=== PATIENT | male | born 1955 | race Hispanic/Latino ===

== ENCOUNTER 2018-03-20 22:29 | Inpatient (IN) | payer OTHER ==
[2018-03-20] MEDS ORDERED: fentaNYL Citrate/PF 2,000 MCG in Sodium Chloride 0.9% 60 ML IV SCH (22:37)
[2018-03-20 22:48] LABS: #Basophils 0.1 thou/uL (0.0-0.2); #Eosinphils 0.1 thou/uL (0.0-0.7); #Lymphocytes 2.5 thou/uL (1.20-3.40); #Monocytes 0.4 thou/uL (0.11-0.59); #Neutrophils 8.3 thou/uL (1.40-6.50); %Basophils 0.5 % (0.0-1.0); %Eosinophils 0.9 % (0.0-10.0); %Lymphocytes 21.8 % (21.0-51.0); %Monocytes 3.7 % (0.0-10.0); %Neutrophils 73.1 % (42.0-75.0); Hemoglobin 14.2 g/dL (14.0-18.0); Mean Corpuscular HGB CONC 31.5 g/dL (32.0-36.0); Mean Corpuscular Hemoglobin 31.4 pg (27.0-31.0); Mean Corpuscular Volume 99.7 fL (78.0-98.0); Mean Platelet Volume 9.3 fL (7.4-10.4); Platelet Count 143 thou/uL (130-400); RBC Distribution Width 12.1 % (11.5-14.5); Red Blood Cell (RBC) Count 4.53 mill/uL (4.70-6.10); White Blood Cell (WBC) Count 11.3 thou/uL (4.8-10.8)
[2018-03-20 22:51] LABS: Bilirubin Negative (Negative); Blood, Urine Moderate (Negative); Clarity CLEAR (Clear); Glucose, Urine (Dipstick) 250 mg/dL (Negative); Leukocyte Negative (Negative); Nitrite Negative (Negative); Protein, Urine (Dipstick) 100 mg/dL (Neg-Trace); Specific Gravity, Urine 1.005 (1.002-1.036); Urobilinogen 0.2 mg/dL (0.2-1.0)
[2018-03-20] MEDS ORDERED: Labetalol HCl 100 MG/20 ML VIAL ONE (22:51)
[2018-03-20 22:54] LABS: Bacteria/HPF None Seen HPF (None Seen); Hyaline Casts/LPF 0-3 HYALINE CAST LPF (0-3 Hyaline); Pathc Cast-AUWi Flag 0.29 (0-2.49); RBC/HPF 0-3 HPF (0-3); Squamous Epithelial 0-3 HPF (0-3)
[2018-03-20 22:55] LABS: INR-International Normal Ratio 1.1; PTT 34.1 SEC (22.9-36.1)
[2018-03-20 23:01] LABS: ALT (SGPT) 84 U/L (8-55); AST (SGOT) 228 U/L (5-34); Albumin 3.6 g/dL (3.4-4.8); Alkaline Phosphatase 116 U/L (40-150); Anion Gap 17 mmol/L (10-20); BUN (Urea Nitrogen) 11 mg/dL (8.4-25.7); Bilirubin, Total 0.6 mg/dL (0.2-1.2); Calc. Creatinine Clearance 0 mL/min (70-130); Calcium 8.1 mg/dL (7.8-10.44); Carbon Dioxide 17 mmol/L (23-31); Chloride 103 mmol/L (98-107); Estimated GFR-MDRD Greater than 90; Globulin 2.9 g/dL (2.4-3.5); Glucose 149 mg/dL (80-115); Lipase 34 U/L (8-78); Protein, Total 6.5 g/dL (5.8-8.1); Sodium 134 mmol/L (136-145)
[2018-03-20 23:05] LABS: Troponin I 0.057 ng/mL (< 0.028)
[2018-03-20 23:07] LABS: Bicarbonate (HCO3v) 23.6 mmol/L (1.0-85.0); CO2 Tension (PvCO2) 55.9 mmHg (41.0-51.0); Calcium, Ionized 1.08 mmol/L (1.12-1.32); Hemoglobin - Calc 17.3 g/dL (12.0-18.0); Lactate 4.89 mmol/L (0.50-2.20); O2 Tension (PvO2) 75.3 mmHg (35.0-45.0); Potassium 2.7 mmol/L (3.4-4.7); T. Carbon Dioxide 25.3 mmol/L (1.0-85.0); pH (Venous) 7.234 (7.35-7.45); vO2 Saturation-calc 91.7 % (94-98)
[2018-03-20 23:07] LABS: Actual Bicarbonate (HCO3a) 19.6 mEq/L (22-28); Analyzer IN Cardio ER; Base Excess (BEa) -7.9 mEq/L (-2.0 to +3.0); CO2 Tension 46.9 mmHg (35.0-45.0); Calcium, Ionized 1.11 mmol/L (1.12-1.30); Carboxyhemoglobin (COHb) 0.8 gm% (0.0-3.0); Hemoglobin (Hb) 16.3 g/dL (14.0-18.0); O2 Tension (PaO2) 130.8 mmHg (> 70.0); Potassium - ABG Lab 3.03 mmol/L (3.70-5.30)
[2018-03-20 23:08] LABS: CKMB 10.4 ng/mL (0-6.6)
[2018-03-20 23:10] LABS: pH, Arterial 7.24 (7.35-7.45)
[2018-03-20 23:11] LABS: ALV-art Gradient 523.575 (0-20); Puncture Site RRA
--- NOTE | 2018-03-20 23:16 | RAD ---
AP VIEW CHEST: 03/20/18 HISTORY: Cardiac arrest. AP view chest is obtained on 03/20/18. The patient has been intubated. Cardiomegaly is seen. There has been placement of a left subclavian c entral line. The distal tip appears to be kinked in the junction of the SVC and left brachiocephalic vein. Some pulmonary vascular congestion is seen. No evidence of effusion seen. There appears to be some diffuse air space opacities in both upper lobes. This may represent upper lo be edema including possible pneumonia. IMPRESSION: 1. The distal tip of the left subclavian central line is slightly kinked in the distal aspect. 2. Endotracheal tube in good position. 3. Areas of air space opacity seen in upper lobes. Pneumonia cannot be excluded. POS: [facility]
--- NOTE | 2018-03-20 23:35 | CT ---
CT BRAIN 03/20/18 HISTORY: Witnessed fall. Patient passed out. Unknown if there was head trauma. Noncontrast enhanced CT images of the brain obtained. The brain is unremarkable. No evidence of intracranial masses, hemorrhages, strokes or contusions see n. Ventricles are of normal size. IMPRESSION: Unremarkable CT brain. POS: [facility]
--- NOTE | 2018-03-20 23:44 | CT ---
CT CERVICAL SPINE 03/20/18 HISTORY: Cardiac arrest. Axial images are obtained with coronal and sagittal reconstructed images of the cervical spine. Cervical spine alignment is within normal limits. No evidence of acute cervical spine fractures seen. Nasogastric and endotracheal tube are in place. Prominent interstitial markings seen in the lungs compatible with interstitial fibrotic changes. IMPRESSION: No evidence of acute cervical spine fractures or bony lesions. POS: [facility]
[2018-03-20] MEDS ORDERED: Potassium Chloride 40 MEQ in Premix Bag 1 BAG IVPB SCH (23:45)
[2018-03-20] MEDS ORDERED: niCARdipine 20MG In NaCl 20 MG/200 ML BAG ONE (23:47)
[2018-03-20] MEDS ORDERED: Vecuronium 10 MG VIAL ONE (23:54)
--- NOTE | 2018-03-21 00:59 | PDOC.FPRHP ---
- History of Present Illness Chief Complaint: LOC, vfib with ROSC History of Present Illness: This is a 63 yo male otherwise healthy who presents to the ED following a loss of pulse, CPR, and ROSC. - Allergies/Adverse Reactions Allergies Allergy/AdvReac Type Severity Reaction Status Date / Time No Allergy Information Allergy Unverified 03/20/18 22:37 Available - History PMHx: PSHx: FHx: Social: - Vital signs BP: [] HR: [] RR: [] Tmax: [] Pox: []% on [] Wt: [] FMR H&P: Results - Labs Result Diagrams: 03/20/18 22:34 03/20/18 22:34 Lab results: WBC 11.3 thou/uL (4.8-10.8) H 03/20/18 22:34 Hgb 14.2 g/dL (14.0-18.0) 03/20/18 22:34 Hct 45.1 % (42.0-52.0) 03/20/18 22:34 MCV 99.7 fL (78.0-98.0) H 03/20/18 22:34 Plt Count 143 thou/uL (130-400) 03/20/18 22:34 Neutrophils % 73.1 % (42.0-75.0) 03/20/18 22:34 ABG pH 7.24 (7.35-7.45) L* 03/20/18 23:01 ABG pCO2 46.9 mmHg (35.0-45.0) H 03/20/18 23:01 ABG pO2 130.8 mmHg (> 70.0) H 03/20/18 23:01 VBG pCO2 55.9 mmHg (41.0-51.0) H 03/20/18 23:02 VBG pO2 75.3 mmHg (35.0-45.0) H 03/20/18 23:02 Sodium 134 mmol/L (136-145) L 03/20/18 22:34 Potassium 3.0 mmol/L (3.5-5.1) L 03/20/18 22:34 Chloride 103 mmol/L (98-107) 03/20/18 22:34 Carbon Dioxide 17 mmol/L (23-31) L 03/20/18 22:34 BUN 11 mg/dL (8.4-25.7) 03/20/18 22:34 Creatinine 0.83 mg/dL (0.6-1.3) 03/20/18 22:34 Glucose 149 mg/dL (80-115) H 03/20/18 22:34 Lactic Acid 5.7 mmol/L (0.5-2.2) H* 03/20/18 22:34 Calcium 8.1 mg/dL (7.8-10.44) 03/20/18 22:34 Total Bilirubin 0.6 mg/dL (0.2-1.2) 03/20/18 22:34 AST 228 U/L (5-34) H 03/20/18 22:34 ALT 84 U/L (8-55) H 03/20/18 22:34 Alkaline Phosphatase 116 U/L (40-150) 03/20/18 22:34 CK-MB (CK-2) 10.4 ng/mL (0-6.6) H* 03/20/18 22:34 C-Reactive Protein Less than 0.50 mg/dL (= or < 0.5) 03/20/18 22:34 Serum Total Protein 6.5 g/dL (5.8-8.1) 03/20/18 22:34 Albumin 3.6 g/dL (3.4-4.8) 03/20/18 22:34 Lipase 34 U/L (8-78) 03/20/18 22:34 Urine Ketones Negative mg/dL (Negative) 03/20/18 22:41 Urine Blood Moderate (Negative) H 03/20/18 22:41 Urine Nitrite Negative (Negative) 03/20/18 22:41 Ur Leukocyte Esterase Negative (Negative) 03/20/18 22:41 Urine RBC 0-3 HPF (0-3) 03/20/18 22:41 Urine WBC 4-6 HPF (0-3) H 03/20/18 22:41 Ur Squamous Epith Cells 0-3 HPF (0-3) 03/20/18 22:41 Urine Bacteria None Seen HPF (None Seen) 03/20/18 22:41 FMR H&P: Upper Level - Plan Date/Time: 03/21/18 0057 I, [], have evaluated this patient and agree with findings/plan as outlined by management internship resident. Pertinent changes/additions are listed here. Attending Addendum - Attending Addendum Date/Time: 03/21/18 0102 I personally evaluated the patient and discussed the management with Dr. Carter and Jana I agree with the History, Examination, Assessment and Plan documented above with any addition or exceptions noted below- 63 yo male with no known past medical history per family presented after witnessed arrest. Patient was at [facility] when he collapsed. Found to be pulseless and CPR initiated, EMS activated. Found to be in v-fib upon EMS arrival and received 2 shocks, 1 epi with ROSC achieved. Patient intubated in field. PMH/PSH/Meds reviewed and agree with resident's documentation. SH- (+)Tob and (+)ETOH. T 93.0 BP 183/84 P59 RR16 98% on vent Exam repeated by me and agree with resident's findings. Labs: WBC=11.3, H/H=14.2/45.1, Xjv=931, Ms=976, K=3.0, Ek=413, CO2=17, BUN/Cr=11/0.83 , Lihm=886, PT/PTT=14/34.1, INR=1.1, Ca=8.1, Mg=2.2, Lactate=5.7, AST/ALT= 228/ 84, CKMB=10.4, Trop I=0.057, U/A- mod blood, prot-100, gluc-250. CT brain- no acute findings. CT C-spine- no fractures/acute findings. EKG- NSR, no ST changes. A/P: 1) s/p Cardiac arrest with ROSC- Admit to ICU; continue vent/ sedation and hypothermia protocols. Consult cardiology and pulmonary. Monitor electrolytes per protocol. 2) Transaminitis- probable shock liver; continue to monitor. 3) Hyperglycemia- will check HgbA1c; possible stress reaction from event.
[2018-03-21] MEDS ORDERED: Acetaminophen 1,000 MG in Premix Bag 1 BAG IVPB PRN (01:15)
[2018-03-21] MEDS ORDERED: Vecuronium 10 MG VIAL IV PRN (01:15)
[2018-03-21] MEDS ORDERED: Sodium Chloride 0.9% 1,000 ML IV SCH ×2 (01:15→17:00)
[2018-03-21] MEDS ORDERED: ALL FLUIDS SHOULD BE DEXTROSE FREE IF POSSIBLE FS SCH (01:15)
[2018-03-21] MEDS ORDERED: DO NOT USE PRE-EXISTING LYTE PROTOCOL FS SCH (01:15)
[2018-03-21] MEDS ORDERED: Lorazepam 2 MG/ML VIAL SLOW IVP PRN ×2 (01:19→02:25)
[2018-03-21] MEDS ORDERED: Fentanyl BOLUS 250 ML IVPB PRN ×2 (01:19→02:25)
[2018-03-21] MEDS ORDERED: Morphine 2 MG/ML SYRINGE SLOW IVP PRN ×2 (01:19→02:25)
[2018-03-21] MEDS ORDERED: DISCONTINUE PREVIOUS NARCOTIC PAIN MEDICATIONS AND BENZODIAZEPINES FS SCH (01:19)
[2018-03-21] MEDS ORDERED: Propofol BOLUS 1,000 MG/100 ML VIAL IV PRN ×2 (01:19→02:25)
[2018-03-21] MEDS ORDERED: Propofol 1,000 MG/100 ML VIAL IV PRN ×2 (01:19→02:25)
[2018-03-21] MEDS ORDERED: Dextrose 5 % And 0.9 % NaCl 1,000 ML IV SCH (01:30)
[2018-03-21 01:34] LABS: Hemoglobin A1c 5.4 % (4.0-6.0)
[2018-03-21 02:01] LABS: Calcium 8.2 mg/dL (7.8-10.44); Phosphorus 4.9 mg/dL (2.3-4.7)
[2018-03-21] MEDS ORDERED: Ventilator Sedation Protocol 1 EACH FS ONE (02:02)
[2018-03-21] MEDS ORDERED: Ondansetron PF 4 MG/2 ML Vial IVP PRN (02:02)
--- NOTE | 2018-03-21 02:05 | PDOC.FPRHP ---
- History of Present Illness Chief Complaint: Out of hospital ROSC History of Present Illness: This is a 63 yo male with no PMH who presents to the ED following ROSC. EMS reports that pt. experienced witnessed LOC and was pulseless. Pt. received bystander CPR until EMS arrived. Pt. was in vfib and was intubated and received 2 shocks and 1 round of epinephrine in the field. ROSC was achieved and pt. was brought to ED. Children of pt. arrived and report no major PMH, only a history of alcohol and tobacco abuse. Family denies pt. complaining of any symptoms prior to this event. - Allergies/Adverse Reactions Allergies Allergy/AdvReac Type Severity Reaction Status Date / Time No Allergy Information Allergy Unverified 03/20/18 22:37 Available - History PMHx: none PSHx: none FHx: none Social: abuses alcohol and tobacco - Review of Systems ROS unobtainable: due to endotracheal tube - Vital signs BP: 148/75 HR: 54 RR: 16 Tmax: 93.9 Pox: 97% on ventilator Wt: 62.8 - Physical Exam Constitutional: other (Intubated, GSC 3) HEENT: normocephalic and atraumatic, MMM, other (sluggish constriction of pupils ) Neck: trachea midline, no JVD Heart: pulses present Lungs: good air movement Abdomen: bowel sounds present, no masses/distention FMR H&P: Results - Labs Result Diagrams: 03/21/18 02:40 03/21/18 02:40 Lab results: WBC 11.3 thou/uL (4.8-10.8) H 03/20/18 22:34 Hgb 14.2 g/dL (14.0-18.0) 03/20/18 22:34 Hct 45.1 % (42.0-52.0) 03/20/18 22:34 MCV 99.7 fL (78.0-98.0) H 03/20/18 22:34 Plt Count 143 thou/uL (130-400) 03/20/18 22:34 Neutrophils % 73.1 % (42.0-75.0) 03/20/18 22:34 ABG pH 7.24 (7.35-7.45) L* 03/20/18 23:01 ABG pCO2 46.9 mmHg (35.0-45.0) H 03/20/18 23:01 ABG pO2 130.8 mmHg (> 70.0) H 03/20/18 23:01 VBG pCO2 55.9 mmHg (41.0-51.0) H 03/20/18 23:02 VBG pO2 75.3 mmHg (35.0-45.0) H 03/20/18 23:02 Sodium 134 mmol/L (136-145) L 03/20/18 22:34 Potassium 3.0 mmol/L (3.5-5.1) L 03/20/18 22:34 Chloride 103 mmol/L (98-107) 03/20/18 22:34 Carbon Dioxide 17 mmol/L (23-31) L 03/20/18 22:34 BUN 11 mg/dL (8.4-25.7) 03/20/18 22:34 Creatinine 0.83 mg/dL (0.6-1.3) 03/20/18 22:34 Glucose 149 mg/dL (80-115) H 03/20/18 22:34 Lactic Acid 5.7 mmol/L (0.5-2.2) H* 03/20/18 22:34 Calcium 8.1 mg/dL (7.8-10.44) 03/20/18 22:34 Total Bilirubin 0.6 mg/dL (0.2-1.2) 03/20/18 22:34 AST 228 U/L (5-34) H 03/20/18 22:34 ALT 84 U/L (8-55) H 03/20/18 22:34 Alkaline Phosphatase 116 U/L (40-150) 03/20/18 22:34 CK-MB (CK-2) 10.4 ng/mL (0-6.6) H* 03/20/18 22:34 C-Reactive Protein Less than 0.50 mg/dL (= or < 0.5) 03/20/18 22:34 Serum Total Protein 6.5 g/dL (5.8-8.1) 03/20/18 22:34 Albumin 3.6 g/dL (3.4-4.8) 03/20/18 22:34 Lipase 34 U/L (8-78) 03/20/18 22:34 Urine Ketones Negative mg/dL (Negative) 03/20/18 22:41 Urine Blood Moderate (Negative) H 03/20/18 22:41 Urine Nitrite Negative (Negative) 03/20/18 22:41 Ur Leukocyte Esterase Negative (Negative) 03/20/18 22:41 Urine RBC 0-3 HPF (0-3) 03/20/18 22:41 Urine WBC 4-6 HPF (0-3) H 03/20/18 22:41 Ur Squamous Epith Cells 0-3 HPF (0-3) 03/20/18 22:41 Urine Bacteria None Seen HPF (None Seen) 03/20/18 22:41 Additional comment: Vent settings at time of ABG Rate 14/min TV 450 ml PEEP 5 Pressure support 10 FIO2 100% - Radiology Interpretation Other Status: report reviewed by me (Cspine negative fore acute fractures or bony abnormalities) CT scan - head Status: report reviewed by me (Unremarkable CT brain) Chest x-ray Status: report reviewed by me (Distal tip of subclavian line is slightly kinked in the distal aspect, ET tube in good position, areas of air space opacity in upper lobes) FMR H&P: A/P - Problem List (1) Cardiac arrest, cause unspecified Current Visit: Yes Status: Acute Code(s): I46.9 - CARDIAC ARREST, CAUSE UNSPECIFIED (2) Acute respiratory failure with hypoxia and hypercapnia Current Visit: Yes Status: Acute Code(s): J96.01 - ACUTE RESPIRATORY FAILURE WITH HYPOXIA; J96.02 - ACUTE RESPIRATORY FAILURE WITH HYPERCAPNIA (3) Hypokalemia Current Visit: Yes Status: Acute Code(s): E87.6 - HYPOKALEMIA (4) Transaminitis Current Visit: Yes Status: Acute Code(s): R74.0 - NONSPEC ELEV OF LEVELS OF TRANSAMNS & LACTIC ACID DEHYDRGNSE - Plan This is a 63 yo male with no PMH Cardiac arrest with unknown cause -Admit to CCU -Incubation and hypothermia protocol -We have consulted cardiology and Pulmonology and will appreciate their recommendations -AM ABG -LR at 125 ml/hr -Strict I&Os Acute respiratory failure with hypoxia and hypercapnia 2/2 from above -Currently intubated -Repeat AM ABG Hypokalemia -Pt. is receiving IV replacement -Monitor potassium Transaminitis -Likely 2/2 to hypoxia -Will continue to monitor Alcohol abuse -Aware Tobacco abuse -Aware Code: full Prophylaxis: lovenox, pepcid Family: Son and daughter at bedside Disposition: DC in 5-6 days FMR H&P: Upper Level - Pertinent history 63 yo male here for cardiac arrest s/p ROSC in the field s/p CPR x 10min, ventricular fibrillation, defibrillation x2, epinephrine x1. Intubated in the field. History pulled from son and daughter who are at bedside as well as ER record/EMT report. [facility]. Family reports no medical history, does not see a doctor, was not feeling sick in the days prior. Family endorses smoking and drinking. Family did not know the friend that [facility]. - Pertinent findings In ER, patient was cooled with hypothermia protocol, also received fentanyl for sedation. Also started on cardene drip for hypertension. 196/96 HR: 66 Temp: 93 100% on vent SIMV: Rate: 14, Tidal volume: 450, PEEP 5.0, Inspired O2: 100, Pressure support : 10 AB.24/46.9/130.8 Lactate: 5.7 Trop: 0.057 CK: 10.4 Na: 134, K: 3.0, Cl: 103, Bicarb: 17, BUN: 11, Cr:0.83, Glucose: 144 EKG: sinus rhythm, left ventricular hypertrophy with strain, left atrial enlargement, prolonged QTc CT head and neck: no acute abnormality GEN: intubated CARD: distant heart sounds, RRR PULM: CTA NEURO: GCS 3, no babinski, pupils 3mm with minimal light reflex Central line in left subclavian - Plan Date/Time: 03/21/18 0201 Kevin Angulo DO, have evaluated this patient and agree with findings/plan as outlined by wireless internet installer resident. Pertinent changes/additions are listed here. #ROSC s/p cardiac arrest with defib x2 -intubated, admit to CCU with sedation protocol -discussed case with Dr. Velasquez and Dr. Joyner, recs greatly appreciated -hypothermia protocol, includes all pertinent labs (CBC, BMP, INR, etc) -not sure of etiology of cardiac arrest, urine and blood cultures pending; will also check drug screen and EtOH -ECHO in AM #acute hypoxic resp failure -will monitor overnight and reevaluate in the morning #elevated cardiac enzymes -continue to trend -cardiology has been consulted, will plan for them to see him in the morning #lactic acidosis -continue to trend #hypokalemia #transaminitis
[2018-03-21] MEDS ORDERED: fentaNYL Citrate/PF 2,000 MCG in Sodium Chloride 0.9% 60 ML IV SCH (02:25)
[2018-03-21] MEDS: Lactated Ringer's 1,000 ML IV SCH ×4 (02:33→21:24)
[2018-03-21 03:03] LABS: #Lymphocytes 0.9 thou/uL (1.20-3.40); #Monocytes 0.2 thou/uL (0.11-0.59); #Neutrophils 9.1 thou/uL (1.40-6.50); %Basophils 0.4 % (0.0-1.0); %Eosinophils 0.2 % (0.0-10.0); %Lymphocytes 8.7 % (21.0-51.0); %Monocytes 2.1 % (0.0-10.0); %Neutrophils 88.6 % (42.0-75.0); Hemoglobin 15.1 g/dL (14.0-18.0); Mean Corpuscular HGB CONC 32.7 g/dL (32.0-36.0); Mean Corpuscular Hemoglobin 31.6 pg (27.0-31.0); Mean Corpuscular Volume 96.5 fL (78.0-98.0); Mean Platelet Volume 9.3 fL (7.4-10.4); Platelet Count 138 thou/uL (130-400); Red Blood Cell (RBC) Count 4.77 mill/uL (4.70-6.10); White Blood Cell (WBC) Count 10.2 thou/uL (4.8-10.8)
[2018-03-21 03:12] LABS: Lactic Acid 3.1 mmol/L (0.5-2.2)
[2018-03-21 04:15] LABS: ALT (SGPT) 95 U/L (8-55); AST (SGOT) 229 U/L (5-34); Albumin 4.1 g/dL (3.4-4.8); Alkaline Phosphatase 118 U/L (40-150); Anion Gap 17 mmol/L (10-20); BUN (Urea Nitrogen) 12 mg/dL (8.4-25.7); Bilirubin, Total 0.9 mg/dL (0.2-1.2); Calc. Creatinine Clearance 86 mL/min (70-130); Calcium 8.7 mg/dL (7.8-10.44); Carbon Dioxide 23 mmol/L (23-31); Chloride 100 mmol/L (98-107); Estimated GFR-MDRD Greater than 90; Globulin 3.3 g/dL (2.4-3.5); Glucose 257 mg/dL (80-115); Potassium 3.6 mmol/L (3.5-5.1); Protein, Total 7.4 g/dL (5.8-8.1); Sodium 136 mmol/L (136-145)
[2018-03-21 06:19] LABS: Prothrombin Time 13.4 SEC (12.0-14.7)
[2018-03-21 06:24] LABS: #Lymphocytes 0.7 thou/uL (1.20-3.40); #Monocytes 0.8 thou/uL (0.11-0.59); #Neutrophils 10.9 thou/uL (1.40-6.50); %Basophils 0.4 % (0.0-1.0); %Eosinophils 0.1 % (0.0-10.0); %Lymphocytes 5.3 % (21.0-51.0); %Neutrophils 88.2 % (42.0-75.0); Hemoglobin 14.9 g/dL (14.0-18.0); Mean Corpuscular Hemoglobin 30.9 pg (27.0-31.0); Mean Corpuscular Volume 96.7 fL (78.0-98.0); Mean Platelet Volume 9.7 fL (7.4-10.4); Platelet Count 158 thou/uL (130-400); RBC Distribution Width 12.1 % (11.5-14.5); Red Blood Cell (RBC) Count 4.81 mill/uL (4.70-6.10); White Blood Cell (WBC) Count 12.4 thou/uL (4.8-10.8)
[2018-03-21 06:39] LABS: CKMB 36.4 ng/mL (0-6.6)
[2018-03-21 06:44] LABS: Anion Gap 12 mmol/L (10-20); BUN (Urea Nitrogen) 14 mg/dL (8.4-25.7); Calc. Creatinine Clearance 85 mL/min (70-130); Calcium 8.6 mg/dL (7.8-10.44); Carbon Dioxide 29 mmol/L (23-31); Chloride 101 mmol/L (98-107); Estimated GFR-MDRD Greater than 90; Glucose 130 mg/dL (80-115); Magnesium 1.9 mg/dL (1.6-2.6); Phosphorus 2.8 mg/dL (2.3-4.7); Potassium 4.4 mmol/L (3.5-5.1); Sodium 138 mmol/L (136-145)
[2018-03-21 06:48] LABS: Actual Bicarbonate (HCO3a) 25.8 mEq/L (22-28); Base Excess (BEa) 0.9 mEq/L (-2.0 to +3.0); CO2 Tension 42.2 mmHg (35.0-45.0); Calcium, Ionized 1.12 mmol/L (1.12-1.30); Carboxyhemoglobin (COHb) 0.8 gm% (0.0-3.0); Hemoglobin (Hb) 15.6 g/dL (14.0-18.0); O2 Tension (PaO2) 240.3 mmHg (> 80.0); Potassium - ABG Lab 4.37 mmol/L (3.70-5.30); pH, Arterial 7.41 (7.35-7.45)
[2018-03-21 06:50] LABS: Puncture Site RRA
--- NOTE | 2018-03-21 07:50 | CON ---
DATE OF CONSULTATION: 03/21/2018 Forty-five minutes critical care time. REASON FOR CONSULTATION: Critical care management. HISTORY OF PRESENT ILLNESS: The patient is a 63-year-old male who was found down at a [employer] last night. Initially he was in V-fib. Apparently he was shocked a couple of times. He event ually had return of spontaneous circulation. He was intubated in the field. He has been on a hypoth ermia protocol overnight. The nursing staff tells me that he has been able to move around some, but his moving dissipates as they cooled him more. PAST MEDICAL HISTORY: Unknown. PAST SURGICAL HISTORY: Not known. SOCIAL HISTORY: Apparently smokes. MEDICATIONS: Unknown. FAMILY MEDICAL HISTORY: Unknown. REVIEW OF SYSTEMS: Cannot be obtained. PHYSICAL EXAMINATION: VITAL SIGNS: Temperature 94.5, pulse 62, blood pressure 171/51, O2 sat 98%. GENERAL: He is currently on a propofol drip. HEENT: Pupils 3 mm, sluggishly reactive. Sclerae are anicteric. Oropharynx clear. NECK: No JVD. LUNGS: Clear anteriorly. CARDIOVASCULAR: S1, S2, bradycardic without audible murmur. ABDOMEN: Soft, no hepatosplenomegaly. EXTREMITIES: No clubbing, cyanosis, or edema. SKIN: Slightly cyanotic. LABORATORY DATA: Sodium 138, potassium 4.4, chloride 101, CO2 29, BUN 14, creatinine 0.7, glucose 13 0. Phosphorus 2.8, mag 1.9. Last lactic acid level was 3.1, pH 7.41, pCO2 42, pO2 240 on SIMV rate 24, tidal volume 450, PEEP 5, pressure support 10, FiO2 60%. INR is 1.0. White blood cell count 12. 4, hematocrit 46.5, platelet count 158. Chest x-ray shows good placement of endotracheal tube. He has a left subclavian central line in the tip of his superior vena cava, question of infiltrate in the left upper lobe. Heart size is normal. ASSESSMENT: 1. Status post cardiac arrest secondary to V-fib. 2. Acute respiratory failure requiring mechanical ventilation. 3. Mild transaminitis. 4. Lactic acidosis secondary to the arrest. RECOMMENDATIONS: I agree with current supportive care measures. I will go ahead and make his goal t emperature about 97 as there is no data that shows that intense hypothermia improves patient outcome. The patient is on deep venous thrombosis prophylaxis with enoxaparin. Gastrointestinal prophylaxis with Pepcid. I would minimize sedation to the greatest point possible.
[2018-03-21 08:40] LABS: Amphetamine Not Detected (NotDetected); Barbiturates Screen Not Detected (NotDetected); Benzodiazepine Screen Not Detected (NotDetected); Cocaine Metabolite Screen Not Detected (NotDetected); Medtox Control Line Valid? VALID (VALID); Medtox Reader # READER 4; Methadone Not Detected (NotDetected); Methamphetamine Not Detected (NotDetected); Opiate Screen Not Detected (NotDetected); Oxycodone Screen Not Detected (NotDetected); Phencyclidine (PCP) Not Detected (NotDetected); THC/Cannabinoid Screen Not Detected (NotDetected); Tricyclic Screen Not Detected (NotDetected)
[2018-03-21] MEDS ORDERED: Enoxaparin Sodium 40 MG/0.4 ML SYRINGE SC SCH (09:00)
[2018-03-21] MEDS: Famotidine/PF 20 mg/2ml Vial SLOW IVP SCH ×2 (09:27→21:23)
[2018-03-21 12:35] LABS: #Lymphocytes 0.5 thou/uL (1.20-3.40); #Monocytes 0.4 thou/uL (0.11-0.59); #Neutrophils 7.7 thou/uL (1.40-6.50); %Basophils 0.2 % (0.0-1.0); %Eosinophils 0.1 % (0.0-10.0); %Lymphocytes 5.7 % (21.0-51.0); %Monocytes 4.7 % (0.0-10.0); %Neutrophils 89.3 % (42.0-75.0); Hemoglobin 13.7 g/dL (14.0-18.0); Mean Corpuscular HGB CONC 33.2 g/dL (32.0-36.0); Mean Corpuscular Volume 96.5 fL (78.0-98.0); Mean Platelet Volume 9.2 fL (7.4-10.4); Platelet Count 144 thou/uL (130-400); RBC Distribution Width 12.2 % (11.5-14.5); Red Blood Cell (RBC) Count 4.28 mill/uL (4.70-6.10); White Blood Cell (WBC) Count 8.7 thou/uL (4.8-10.8)
[2018-03-21 12:38] LABS: PTT 35.6 SEC (22.9-36.1); Prothrombin Time 13.4 SEC (12.0-14.7)
[2018-03-21 13:04] LABS: Anion Gap 14 mmol/L (10-20); BUN (Urea Nitrogen) 14 mg/dL (8.4-25.7); Calc. Creatinine Clearance 88 mL/min (70-130); Calcium 8.5 mg/dL (7.8-10.44); Carbon Dioxide 23 mmol/L (23-31); Chloride 101 mmol/L (98-107); Estimated GFR-MDRD Greater than 90; Glucose 123 mg/dL (80-115); Magnesium 1.5 mg/dL (1.6-2.6); Phosphorus 2.5 mg/dL (2.3-4.7); Potassium 4.2 mmol/L (3.5-5.1); Sodium 134 mmol/L (136-145)
[2018-03-21 13:06] LABS: CKMB 41.9 ng/mL (0-6.6); Troponin I 2.518 ng/mL (< 0.028)
[2018-03-21] MEDS ORDERED: Aspirin 81 mg Enteric Coated Tablet PO SCH (17:00)
[2018-03-21] MEDS ORDERED: Communication Order-Pharmacy FS SCH (17:00)
[2018-03-21] MEDS ORDERED: Aspirin 325 MG TAB PO SCH (17:15)
--- NOTE | 2018-03-21 23:44 | CON ---
DATE OF CONSULTATION: 03/21/2018 HISTORY: Ajith Vines is a 63-year-old, , [place] Citizen-speaking only male, who apparently [facility], had a witnessed cardiac arrest. Bystander CPR was started, and police also administered 10 minutes of CPR. EMS arrived, delivered 2 shocks, intubated the patient. He had return of spontaneous circulation apparently at approximately 6 minutes of CPR. His initial cardiac rhythm was ventricular fibrillation. He was then brought here by helicopter from the [facility]. He has been weaned from the ventilator and extubated today. He denies any chest pain or shortness of breath prior to this episode. He denies any previous episodes of chest pain or shortness of breath. PAST MEDICAL HISTORY: He denies any history of hypertension, diabetes or hypercholesterolemia. However, son states that he never goes to the doctor. MEDICATIONS: None. ALLERGIES: None. OPERATIONS: None. SOCIAL HISTORY: He smokes 1 pack per week. Occasionally drinks. FAMILY HISTORY: Negative for coronary artery disease. REVIEW OF SYSTEMS: Twelve-point review of systems otherwise unremarkable. PHYSICAL EXAMINATION: VITAL SIGNS: Blood pressure 175/58, pulse of 97. HEENT: PERRL. NECK: Supple. CHEST: Clear. CARDIAC: S1 and S2 are normal, without any S3, S4 or murmurs. Carotid upstrokes normal, without bruits. Dorsalis pedis and posterior tibial pulses are intact. ABDOMEN: Normal bowel sounds, without tenderness, organomegaly. EXTREMITIES: Revealed no clubbing, cyanosis or edema. NEUROLOGIC: Grossly intact. SKIN: Warm and dry. LABORATORY DATA AND X-RAY FINDINGS: EKG reveals normal sinus rhythm with left atrial enlargement, probable left ventricular hypertrophy, repolarization abnormality. Hemoglobin 13.7, hematocrit 41.3, white count 8700, platelets 144, 000. INR 1.0, pH 7.41, pCO2 of 42.2, pO2 of 240.3. His initial pH on arrival here was 7.24. Sodium 134, potassium 4.2, chloride 101, carbon dioxide 23, BUN 14, creatinine 0.74. MB 41.9. Troponin I 2.518. Echocardiogram was technically difficult with mild left ventricular hypertrophy, moderate left ventricular systolic dysfunction with ejection fraction of 35%-40%, moderate aortic insufficiency, mild tricuspid regurgitation and mild mitral regurgitation. IMPRESSION: 1. Ventricular fibrillation and cardiac arrest with bystander cardiopulmonary resuscitation. He apparently has not suffered any significant neurological deficits from this. 2. Probable non-ST elevation myocardial infarction versus enzyme leak from cardiac arrest. 3. Moderate left ventricular dysfunction with ejection fraction of 35%-40%. 4. Smoker. 5. Unknown cholesterol status. 6. Elevated liver function tests, probably due to hepatic congestion. PLAN: Patient will be started on low-dose carvedilol with his current blood pressure and left ventricular dysfunction. It was recommended that he undergo cardiac catheterization. Risks of this were discussed with the patient, his and his son, with the son providing translation. Risks were discussed including , myocardial infarction, dye reaction, vascular injury, CVA, transfusion, limb loss, renal loss, etc. Also, risk of intervention with PTCA and stent placement were discussed including , myocardial infarction, emergent CABG, restenosis, stent thrombosis, vessel perforation, etc. I am uncertain as to his long-term compliance and would only place a bare metal stent. Fasting lipid profile will also be performed in the morning. MAYTE
[2018-03-22 04:27] LABS: #Lymphocytes 1.5 thou/uL (1.20-3.40); #Monocytes 0.5 thou/uL (0.11-0.59); #Neutrophils 7.2 thou/uL (1.40-6.50); %Basophils 0.3 % (0.0-1.0); %Eosinophils 0.3 % (0.0-10.0); %Lymphocytes 16.5 % (21.0-51.0); %Neutrophils 77.9 % (42.0-75.0); Hemoglobin 12.1 g/dL (14.0-18.0); Mean Corpuscular HGB CONC 32.6 g/dL (32.0-36.0); Mean Corpuscular Hemoglobin 31.7 pg (27.0-31.0); Mean Corpuscular Volume 97.1 fL (78.0-98.0); Mean Platelet Volume 9.8 fL (7.4-10.4); Platelet Count 120 thou/uL (130-400); RBC Distribution Width 12.2 % (11.5-14.5); Red Blood Cell (RBC) Count 3.82 mill/uL (4.70-6.10); White Blood Cell (WBC) Count 9.2 thou/uL (4.8-10.8)
[2018-03-22 04:40] LABS: ALT (SGPT) 52 U/L (8-55); AST (SGOT) 78 U/L (5-34); Albumin 3.1 g/dL (3.4-4.8); Alkaline Phosphatase 86 U/L (40-150); Anion Gap 10 mmol/L (10-20); BUN (Urea Nitrogen) 16 mg/dL (8.4-25.7); Bilirubin, Total 1.1 mg/dL (0.2-1.2); Calc. Creatinine Clearance 81 mL/min (70-130); Calcium 8.2 mg/dL (7.8-10.44); Carbon Dioxide 27 mmol/L (23-31); Cardiac Risk 1.9 (Less than 4.5); Chloride 102 mmol/L (98-107); Cholesterol 124 mg/dl (< 200 Desired); Estimated GFR-MDRD Greater than 90; Globulin 2.6 g/dL (2.4-3.5); Glucose 100 mg/dL (80-115); HDL Cholesterol 66 mg/dL (>60 Neg Risk); LDL Cholesterol, Calculated 42 mg/dL; Potassium 4.1 mmol/L (3.5-5.1); Protein, Total 5.7 g/dL (5.8-8.1); Sodium 135 mmol/L (136-145); Triglycerides 80 mg/dL (Less than 150)
[2018-03-22] MEDS ORDERED: Sodium Chloride 0.9% 1,000 ML IV SCH ×2 (06:00→07:45)
--- NOTE | 2018-03-22 06:03 | PDOC.FM ---
- Subjective Subjective: Ajith Vines seen at bedside this morning. He was extubated yesterday and did well overnight. He had cardiac catheterization this morning that showed [address] Snider recommended CABG. He denies any fever, chills, chest pain, dyspnea, n/v, abdominal pain. - Objective MAR Reviewed: Yes Vital Signs & Weight: Vital Signs (12 hours) Temp Pulse Ox 03/22/18 04:00 98.7 F 03/22/18 00:00 98.7 F 03/21/18 20:00 97.4 F L 98 Weight Admit Weight 62.8 kg Weight 62.8 kg Most Recent Monitor Data Heart Rate from ECG 66 NIBP 152/59 NIBP BP-Mean 90 Respiration from ECG 18 SpO2 91 I&O: 03/20/18 03/21/18 03/22/18 06:59 06:59 06:59 Intake Total 759 1468.6 Output Total 900 800 Balance -141 668.6 Result Diagrams: 03/22/18 03:30 03/22/18 07:55 <Ryan Noriega - Last Filed: 03/22/18 10:55> - Objective Vital Signs & Weight: Vital Signs (12 hours) Temp Pulse Resp BP BP Pulse Ox 03/22/18 09:32 62 165/73 H 03/22/18 08:00 98.6 F 100 03/22/18 07:45 98.6 F 56 L 24 H 162/65 H 162/65 H 100 03/22/18 04:00 98.7 F 03/22/18 00:00 98.7 F Weight Admit Weight 62.8 kg Weight 62.8 kg Most Recent Monitor Data Heart Rate from ECG 64 NIBP 183/72 NIBP BP-Mean 109 Respiration from ECG 16 SpO2 100 I&O: 03/21/18 03/22/18 03/23/18 06:59 06:59 06:59 Intake Total 759 3405.6 120 Output Total 900 880 195 Balance -141 2525.6 -75 Result Diagrams: 03/22/18 03:30 03/22/18 07:55 <Christopher Molina - Last Filed: 03/22/18 11:07> Phys Exam - Physical Examination Constitutional: NAD HEENT: moist MMs, sclera anicteric Neck: no JVD, supple Respiratory: no wheezing, no rales, no rhonchi, clear to auscultation bilateral Cardiovascular: RRR, no significant murmur Gastrointestinal: soft, non-tender, no distention Musculoskeletal: no edema, pulses present Neurological: non-focal, moves all 4 limbs Psychiatric: normal affect, A&O x 3 <Ryan Noriega - Last Filed: 03/22/18 10:55> Dx/Plan (1) Acute respiratory failure with hypoxia and hypercapnia Code(s): J96.01 - ACUTE RESPIRATORY FAILURE WITH HYPOXIA; J96.02 - ACUTE RESPIRATORY FAILURE WITH HYPERCAPNIA Status: Acute (2) Cardiac arrest, cause unspecified Code(s): I46.9 - CARDIAC ARREST, CAUSE UNSPECIFIED Status: Acute (3) Hypokalemia Code(s): E87.6 - HYPOKALEMIA Status: Acute (4) Transaminitis Code(s): R74.0 - NONSPEC ELEV OF LEVELS OF TRANSAMNS & LACTIC ACID DEHYDRGNSE Status: Acute - Plan Plan: (1) ROSC s/p cardiac arrest with defib x2 - was intubated, admitted to CCU with sedation protocol, extubated after <24 hours - Cardiology consulted, Dr. Snider, who plans to take patient back for heart cath - ECHO showed LVEF of 35-40% - normal FLP, normal HgA1c, cause of heart failure likely 2/2 untreated htn, alcohol abuse - started on aspirin, statin, beta bartolo and ACEI - cardiac cath showed 3 vessel disease, cabg recommended by cardiology. (2) acute hypoxic resp failure-resolved - 2/2 #1, intubated <24 hours - Doing well after extubation (3) elevated cardiac enzymes - 2/2 #1 - continue to trend, most recent was 2.51 - plan to go to [facility] today with Dr. Snidre (4) hypokalemia - continue to trend, supplement as needed (5) transaminitis - continue to monitor, likely 2/2 to alcohol abuse - ASE protocol (6) Hypertension - Started on ACEI and beta bartolo - Will continue to monitor closely <Ryan Noriega - Last Filed: 03/22/18 10:55> Attending Addendum - Attending Addendum Date/Time: 03/22/18 1106 I personally evaluated the patient and discussed the management with Dr. Noriega. I agree with and repeated the History, Examination, Assessment and Plan documented above with any addition or exceptions noted below. <Christopher Molina - Last Filed: 03/22/18 11:07>
[2018-03-22] MEDS ORDERED: Heparin 10,000 UNITS/1 ML VIAL ONE (06:42)
[2018-03-22] MEDS ORDERED: Lidocaine 1% (PF) 30 ML VIAL ONE (06:42)
[2018-03-22] MEDS ORDERED: Midazolam HCl 2 mg/2 ml Vial ONE (07:07)
[2018-03-22] MEDS ORDERED: Fentanyl 100 MCG/2 ML VIAL ONE (07:07)
[2018-03-22] MEDS ORDERED: Protamine Sulfate 50 MG/5 ML VIAL ONE (07:25)
[2018-03-22] MEDS ORDERED: Nitroglycerin 0.4 MG TAB (25 Tab Bottle) SL PRN (07:45)
[2018-03-22] MEDS ORDERED: Acetaminophen/Codeine 30-300mg Tablet PO PRN ×2 (07:45)
[2018-03-22] MEDS ORDERED: Sodium Chloride 0.9% 200 ML IV SCH (07:45)
[2018-03-22] MEDS ORDERED: traMADol HCl 50 MG TAB PO PRN (07:45)
[2018-03-22 08:36] LABS: Anion Gap 9 mmol/L (10-20); BUN (Urea Nitrogen) 15 mg/dL (8.4-25.7); Calc. Creatinine Clearance 81 mL/min (70-130); Calcium 8.2 mg/dL (7.8-10.44); Carbon Dioxide 26 mmol/L (23-31); Chloride 102 mmol/L (98-107); Estimated GFR-MDRD Greater than 90; Glucose 105 mg/dL (80-115); Potassium 4.1 mmol/L (3.5-5.1); Sodium 133 mmol/L (136-145)
--- NOTE | 2018-03-22 08:49 | PRG ---
DATE OF SERVICE: 03/22/2018 I saw him after cardiac catheterization this morning. He was found to have 3-vessel disease and he w ill need bypass surgery. He is currently not having any chest pain or shortness of breath. He has d one well since extubation. PHYSICAL EXAMINATION: VITAL SIGNS: Temperature is 98.6, pulse 67, blood pressure 162/65, O2 sat 91%. HEENT: Unremarkable. NECK: No JVD. CHEST: Clear. CARDIAC: S1 and S2 regular. ABDOMEN: Soft. EXTREMITIES: No edema. LABORATORY DATA: White blood cell count 9.2, hematocrit 37.1, platelet count 120. Sodium 135, potas sium 4.1, BUN 16, creatinine 0.8, glucose 100. ASSESSMENT: 1. Myocardial infarction. 2. Status post sudden cardiac . 3. Status post respiratory failure. PLAN: The patient will need bypass surgery. I will continue to follow him perioperatively for the t gary being. He is stable.
[2018-03-22] MEDS ORDERED: Lisinopril 2.5 MG TAB PO SCH ×2 (09:00→11:30)
[2018-03-22] MEDS: Famotidine/PF 20 mg/2ml Vial SLOW IVP SCH ×2 (09:32→20:35)
[2018-03-22] MEDS: Aspirin 325 mg Enteric Coated Tablet PO SCH (09:32)
[2018-03-22] MEDS: Carvedilol 3.125 MG TAB PO SCH ×2 (09:32→16:58)
[2018-03-22 12:29] LABS: Anion Gap 9 mmol/L (10-20); BUN (Urea Nitrogen) 14 mg/dL (8.4-25.7); Calc. Creatinine Clearance 82 mL/min (70-130); Calcium 8.2 mg/dL (7.8-10.44); Carbon Dioxide 25 mmol/L (23-31); Chloride 103 mmol/L (98-107); Estimated GFR-MDRD Greater than 90; Glucose 109 mg/dL (80-115); Potassium 3.8 mmol/L (3.5-5.1); Sodium 133 mmol/L (136-145)
[2018-03-22] MEDS ORDERED: Iopamidol 370 76% 50 ML VIAL FS ONE (13:53)
[2018-03-22] MEDS ORDERED: Iopamidol 370 76% 100 ML VIAL ONE (13:53)
[2018-03-22 16:28] LABS: Anion Gap 10 mmol/L (10-20); BUN (Urea Nitrogen) 13 mg/dL (8.4-25.7); Calc. Creatinine Clearance 83 mL/min (70-130); Calcium 8.4 mg/dL (7.8-10.44); Carbon Dioxide 26 mmol/L (23-31); Chloride 102 mmol/L (98-107); Estimated GFR-MDRD Greater than 90; Glucose 106 mg/dL (80-115); Potassium 4.2 mmol/L (3.5-5.1); Sodium 134 mmol/L (136-145)
[2018-03-22] MEDS: hydrALAZINE 20 MG/ML VIAL SLOW IVP PRN (17:35)
--- NOTE | 2018-03-22 19:47 | CON ---
DATE OF CONSULTATION: 03/22/2018 REQUESTING PHYSICIAN: Dr. Snider. CHIEF COMPLAINT: Ventricular fibrillatory arrest. HISTORY OF PRESENT ILLNESS: The patient is a 63-year-old man who essentially never goes to the doctor. On the evening of while doing his laundry, he abruptly lost consciousness. A alena nder assessed him and finding no pulse, started CPR while EMS was summoned. Apparently, they arrived within just a very few minutes, found the patient to be in ventricular fibrillation and successfully cardioverted him. After approximately 10 minutes of CPR, he was intubated in the field and transpor dianne to the hospital and underwent hypothermia protocol for an out of hospital arrest. The patient wa s minimally sedated and was allowed to regain consciousness which was weaned from the ventilator and appeared to be neurologically intact. Initially his echocardiogram showed modestly depressed LV func tion. His initial troponin on arrival about 10:30 at night on the was 0.057 and yesterday at no ontime was 2.518. The patient underwent cardiac catheterization today which demonstrates severe thre e-vessel coronary disease, but good LV function. PAST MEDICAL HISTORY: Essentially none. He takes no medications on a regular basis. We get variabl e reports about how much he smokes and how much he drinks. The history that I elicited was that he s mokes 4-5 cigarettes a day and that he drinks about 26 packs of beer a day. ALLERGIES: He has no medical allergies. FAMILY HISTORY: He denies any family history of coronary artery disease. REVIEW OF SYSTEMS: Negative for any TIA symptoms, breathing problems or claudication. PHYSICAL EXAMINATION: GENERAL: He is awake and alert, but rather reserved and tight lipped when it comes to participating with interview. VITAL SIGNS: Patient's heart rate was 64, blood pressure 167/70, O2 sats on 2-3 liters nasal cannula were 100%, height is 5 feet 5, weight 138-1/2 pounds. HEENT: He has no xanthelasma. NECK: No JVD, no carotid bruits. CHEST: Clear to auscultation. He has a regular rate and rhythm without murmur or gallop. ABDOMEN: Soft and nontender, without masses or bruits. EXTREMITIES: He has palpable radial, femoral, dorsalis pedis and posterior tibial pulses. He has no obvious varicosities. No edema. NEUROLOGIC: Grossly nonfocal exam. LABORATORY DATA AND IMAGING DATA: His most recent labs show a white count of 9.2, hemoglobin 12.1, h ematocrit 37.1 and platelets 120,000. PT was 13.4, INR 1.0, PTT 35.6. Sodium 133, potassium 3.8, ch loride 103, CO2 25, glucose 109, BUN 14, creatinine 0.8, calcium 8.2, protein 5.7, albumin 3.1, bilir ubin 1.1, alkaline phosphatase 86, AST 78, ALT 52. Triglycerides 80, cholesterol 124, LDL 42 and HDL 66. His troponins are as above. Chest x-ray from admission when he was intubated shows massively d istended stomach and perhaps cardiomegaly, has some aortic knob calcification and some marked pulmona ry edema. Cardiac catheterization shows a right dominant system, although the right coronary is a sma ll vessel. He has about a 90% lesion in the distal right leading to the PDA with essentially no post erolateral branch. He has got diffuse disease in the very proximal portion of his mid LAD with 60-70 % lesion just beyond the first septal table tender sludge and about an 80%-90% lesion, a centimeter or so beyo nd that involving the origin of reasonably good size high diagonal that has 60%-70% lesion in that di agonal proper. The LAD wraps around the apex. The patient has an almost a trifurcated circumflex. His OM1 appears to be free of disease. There is about an 80% lesion and fairly good sized OM2 proxim ally with rather small OM3 or groove circumflex vessel. LVEF now is about 70% on ventriculography wi th an LV pressure recorded at 100/-2 with an EDP of 4 and aortic pressure on pullback of 90/36 with a mean pressure of 56. IMPRESSION AND RECOMMENDATIONS: Severe three-vessel coronary artery disease with multiple critical l esions in a patient who survived an out of hospital ventricular fibrillation arrest. I agree with Dr Connor Snider's assessment that patient would most appropriately be treated with coronary artery bypass grafting, but at this point, the patient is refusing as he states that it would seem that he is in a state of denial. He does not believe that he had VFIB arrest. He thinks he merely fainted. He does not believe that he has had a heart attack. He does not believe that he has anything at all wrong w ith his heart. Multiple people have tried to explain the gravity of his situation and so far he has pretty much dug in his heels. I will be available as necessary.
[2018-03-22] MEDS: Atorvastatin Calcium 40 MG TAB PO SCH (20:35)
[2018-03-22] MEDS: Lisinopril 20 MG TAB PO SCH (20:35)
[2018-03-22] MEDS ORDERED: Lisinopril 5 MG TAB PO SCH (21:00)
[2018-03-22 21:17] LABS: Anion Gap 11 mmol/L (10-20); BUN (Urea Nitrogen) 13 mg/dL (8.4-25.7); Calc. Creatinine Clearance 83 mL/min (70-130); Calcium 8.4 mg/dL (7.8-10.44); Carbon Dioxide 26 mmol/L (23-31); Chloride 100 mmol/L (98-107); Estimated GFR-MDRD Greater than 90; Glucose 131 mg/dL (80-115); Potassium 3.7 mmol/L (3.5-5.1); Sodium 133 mmol/L (136-145)
[2018-03-23] MEDS ORDERED: Lorazepam 2 MG/ML VIAL SLOW IVP PRN ×3 (00:12→11:00)
[2018-03-23] MEDS ORDERED: Lorazepam 2 MG/ML VIAL ONE (00:17)
[2018-03-23] MEDS ORDERED: Diazepam 5 MG TAB PO PRN (00:26)
[2018-03-23] MEDS ORDERED: Diazepam 5 MG TAB PO SCH (00:30)
[2018-03-23] MEDS ORDERED: Thiamine HCl 200 MG/2 ML VIAL IM SCH (00:30)
[2018-03-23] MEDS ORDERED: Diazepam 5 MG TAB ONE (00:38)
[2018-03-23] MEDS ORDERED: Lorazepam 2 MG/ML VIAL SLOW IVP SCH (01:00)
[2018-03-23 01:06] LABS: ALT (SGPT) 48 U/L (8-55); AST (SGOT) 74 U/L (5-34); Albumin 3.4 g/dL (3.4-4.8); Alkaline Phosphatase 108 U/L (40-150); Anion Gap 13 mmol/L (10-20); BUN (Urea Nitrogen) 13 mg/dL (8.4-25.7); Bilirubin, Total 1.1 mg/dL (0.2-1.2); Calc. Creatinine Clearance 80 mL/min (70-130); Carbon Dioxide 25 mmol/L (23-31); Chloride 100 mmol/L (98-107); Estimated GFR-MDRD Greater than 90; Globulin 3.2 g/dL (2.4-3.5); Glucose 115 mg/dL (80-115); Potassium 4.3 mmol/L (3.5-5.1); Protein, Total 6.6 g/dL (5.8-8.1); Sodium 134 mmol/L (136-145)
[2018-03-23] MEDS: Lorazepam 2 MG/ML VIAL SLOW IVP SCH ×3 (02:49→10:49)
[2018-03-23 05:34] LABS: Anion Gap 11 mmol/L (10-20); BUN (Urea Nitrogen) 12 mg/dL (8.4-25.7); Calc. Creatinine Clearance 88 mL/min (70-130); Calcium 8.4 mg/dL (7.8-10.44); Carbon Dioxide 25 mmol/L (23-31); Chloride 101 mmol/L (98-107); Estimated GFR-MDRD Greater than 90; Glucose 106 mg/dL (80-115); Potassium 3.5 mmol/L (3.5-5.1); Sodium 133 mmol/L (136-145)
[2018-03-23 05:40] LABS: #Monocytes 0.6 thou/uL (0.11-0.59); #Neutrophils 7.2 thou/uL (1.40-6.50); %Basophils 0.3 % (0.0-1.0); %Eosinophils 0.4 % (0.0-10.0); %Lymphocytes 11.4 % (21.0-51.0); %Monocytes 6.7 % (0.0-10.0); %Neutrophils 81.2 % (42.0-75.0); Mean Corpuscular HGB CONC 33.2 g/dL (32.0-36.0); Mean Corpuscular Hemoglobin 32.1 pg (27.0-31.0); Mean Corpuscular Volume 96.6 fL (78.0-98.0); Mean Platelet Volume 9.9 fL (7.4-10.4); Platelet Count 105 thou/uL (130-400); RBC Distribution Width 11.9 % (11.5-14.5); Red Blood Cell (RBC) Count 3.73 mill/uL (4.70-6.10); White Blood Cell (WBC) Count 8.9 thou/uL (4.8-10.8)
--- NOTE | 2018-03-23 07:18 | PDOC.FM ---
- Subjective Subjective: Ajith Vines seen at bedside this morning. Overnight, he became agitated, was trying to get out of bed and was pulling at his blake catheter. He required Ativan 2 mg, 2 doses in the middle of the night to get calm. Since that time, he has not been agitated. He has been declining to pursue CABG for his 3 vessel CAD. His mental status has not been completely intact, at times thinks he is in a hotel. - Objective MAR Reviewed: Yes Vital Signs & Weight: Vital Signs (12 hours) Temp BP Pulse Ox 03/23/18 04:00 98.1 F 134/65 03/23/18 00:00 98.8 F 156/134 H 03/22/18 20:35 163/75 H 03/22/18 20:00 97.6 F 100 Weight Admit Weight 62.8 kg Weight 62.8 kg Most Recent Monitor Data Heart Rate from ECG 64 NIBP 156/75 NIBP BP-Mean 102 Respiration from ECG 18 SpO2 100 I&O: 03/22/18 03/23/18 03/24/18 06:59 06:59 06:59 Intake Total 3405.6 2480 Output Total 880 1605 Balance 2525.6 875 Result Diagrams: 03/23/18 04:45 03/23/18 04:45 <Ryan Noriega - Last Filed: 03/23/18 11:14> - Objective Vital Signs & Weight: Vital Signs (12 hours) Temp BP Pulse Ox 03/23/18 12:00 98.9 F 03/23/18 10:47 159/66 H 03/23/18 08:00 98.3 F 159/66 H 99 03/23/18 04:00 98.1 F 134/65 Weight Admit Weight 62.8 kg Weight 57.9 g Most Recent Monitor Data Heart Rate from ECG 56 NIBP 138/75 NIBP BP-Mean 96 Respiration from ECG 16 SpO2 99 I&O: 03/22/18 03/23/18 03/24/18 06:59 06:59 06:59 Intake Total 3405.6 2480 195 Output Total 880 1605 650 Balance 2525.6 875 -455 Result Diagrams: 03/23/18 04:45 03/23/18 04:45 <Christopher Molina - Last Filed: 03/23/18 14:30> Phys Exam - Physical Examination Constitutional: NAD HEENT: moist MMs, sclera anicteric Neck: supple, full ROM Respiratory: no wheezing, no rales, no rhonchi, clear to auscultation bilateral Cardiovascular: RRR, no significant murmur Gastrointestinal: soft, non-tender Musculoskeletal: no edema, pulses present Neurological: non-focal, normal sensation, moves all 4 limbs Deviation from normal: A&O X2 <Ryan Noriega - Last Filed: 03/23/18 11:14> Dx/Plan (1) Acute respiratory failure with hypoxia and hypercapnia Code(s): J96.01 - ACUTE RESPIRATORY FAILURE WITH HYPOXIA; J96.02 - ACUTE RESPIRATORY FAILURE WITH HYPERCAPNIA Status: Acute (2) Cardiac arrest, cause unspecified Code(s): I46.9 - CARDIAC ARREST, CAUSE UNSPECIFIED Status: Acute (3) Hypokalemia Code(s): E87.6 - HYPOKALEMIA Status: Acute (4) Transaminitis Code(s): R74.0 - NONSPEC ELEV OF LEVELS OF TRANSAMNS & LACTIC ACID DEHYDRGNSE Status: Acute - Plan Plan: (1) ROSC s/p cardiac arrest with defib x2 - was intubated, admitted to CCU with sedation protocol, extubated after <24 hours - Cardiology consulted, Dr. Snider - ECHO showed LVEF of 35-40% - normal FLP, normal HgA1c, cause of heart failure likely 2/2 untreated htn, alcohol abuse - started on aspirin, statin, beta bartolo and ACEI - cardiac cath showed 3 vessel disease, cabg recommended by cardiology. - currently patient is declining CABG - question decision making abilities at this time, he has been agitated and his mental status has not been completely intact (2) acute hypoxic resp failure-resolved - 2/2 #1, intubated <24 hours - Doing well after extubation (3) elevated cardiac enzymes - 2/2 #1 - continue to trend, most recent was 2.51 (4) hypokalemia - continue to trend, supplement as needed (5) transaminitis - continue to monitor, likely 2/2 to alcohol abuse - ASE protocol (6) Hypertension - Started on ACEI and beta bartolo - Will continue to monitor closely <Ryan Noriega - Last Filed: 03/23/18 11:14> Attending Addendum - Attending Addendum Date/Time: 03/23/18 2944 I personally evaluated the patient and discussed the management with Dr. Noriega. I agree with and repeated the History, Examination, Assessment and Plan documented above with any addition or exceptions noted below. Now in likely ETOH w/d (LFTs noted and history concerning for this) vs anoxic injury, although he was quite intact yesterday. Precedex + BZD PRN. Thiamin/ folate/banana bag. Continue medical mgmt and hopefully have a clearer assessment after he recovers. <Christopher Molina - Last Filed: 03/23/18 14:30>
--- NOTE | 2018-03-23 08:07 | PRG ---
DATE OF SERVICE: 03/23/2018 Mr. Vines is sedated from benzodiazepines. He has been having encephalopathic behavior which is prob ably alcohol withdrawal, but could be encephalopathy after the cardiac arrest. PHYSICAL EXAMINATION: VITAL SIGNS: Temperature is 98.1 with no fever, pulse 64, blood pressure 156/75, O2 saturation 100%, 24-hour intake 2480, output 1605. HEENT: Unremarkable. NECK: No adenopathy or JVD. LUNGS: Fairly clear. CARDIOVASCULAR: S1, S2 regular. ABDOMEN: Soft. EXTREMITIES: No edema. LABORATORY DATA: White blood cell count 8.9, hematocrit 36, platelet count 105. Sodium 133, potassi um 3.5, chloride 101, CO2 25, BUN 12, creatinine 0.7, glucose 106. His echo shows a mildly depressed EF 35-40% with moderate aortic regurgitation. ASSESSMENT: 1. Status post cardiac arrest from myocardial infarction, three-vessel disease. 2. Alcohol withdrawal and/or encephalopathy after cardiac arrest. PLAN: 1. Start Precedex drip to see if we can limit the benzodiazepines. 2. Change to a banana bag as he is not taking oral medication well. 3. Continue care in CCU for the time being.
[2018-03-23] MEDS ORDERED: Folic Acid 1 MG TAB PO SCH (09:00)
--- NOTE | 2018-03-23 09:35 | PQF ---
CLINICAL DOCUMENTATION IMPROVEMENT CLARIFICATION FORM: ICD-10 Updated PLEASE DO AN ADDENDUM TO THE PROGRESS NOTE WITH ANY DOCUMENTATION UPDATES OR ADDITIONS AND CARRY THROUGH TO DC SUMMARY. THANK YOU. DATE: 03/23 ATTN: DR. BENJAMÍN RIDER / DR. Praneeth RODRIGUEZ Please exercise your independent, professional judgment in responding to the clarification form. Clinical indicators are provided on the bottom of this form for your review. Please check appropriate box(s) to determine sequence of events: CARDIAC ARREST [ ] Due to (please specify): [ x ] Ventricular Fibrillation [ ] NSTEMI [ ] Other (please specify) [ ] Other diagnosis [ ] Unable to determine For continuity of documentation, please document condition throughout progress notes and discharge summary. Thank You. CLINICAL INDICATORS - SIGNS / SYMPTOMS / LABS ER PHYSICIAN DOCUMENTATION 03/20: PATIENT WAS AT [facility] WHEN HE SUDDENLY PASSED OUT & BECAME UNRESPONSIVE. BYSTANDER & POLICE ADMINISTERED 10 MINUTES OF CPR. EMS DELIVERED 2 SHOCKS FOR INITIAL CARDIAC RHYTHM OF VENTRICULAR FIBRILLATION & INTUBATED PT. FINAL DIAGNOSIS: CARDIAC ARREST, ROSC H&P DOCUMENTATION 03/21: [id number] WHEN HE COLLAPSED. FOUND TO BE PULSELESS & CPR INITIATED, EMS ACTIVATED. FOUND TO BE IN V-FIB UPON EMS ARRIVAL & REC'D 2 SHOCKS, 1 EPI WITH ROSC ACHIEVED. A/P: 1) S/P CARDIAC ARREST W/ROSC, CAUSE UNSPECIFIED PULMONOLOGY H&P 03/21: ASSESSMENT: S/P CARDIAC ARREST 2/2 V-FIB CARDIOLOGY H&P 03/21: IMPRESSION: 1) V-FIB & CARDIAC ARREST; 2) PROBABLE NSTEMI VS ENZYME LEAK FROM CARDIAC ARREST CARDIOLOGY PN 03/22: A/P: 2) NSTEMI ATTENDING PN 03/22 & : DX/PLAN: 2) CARDIAC ARREST, CAUSE UNSPECIFIED TROP I: 0.057, 1.070, 2.518 (03/20 - ) RISKS: SEVERE 3-VESSEL CAD NSTEMI TREATMENT: DEFIBRILLATION IN THE FIELD (03/20) INTUBATION IN THE FIELD (03/20) HEART CATH (03/22 - SEVERE 3 VESSEL DISEASE) THANK YOU! Shawanda (This form is maintained as a part of the permanent medical record) 2014 [employer]. All Rights Reserved Shawanda Hyatt RN, BSN [email or web address] Office: [phone] [facility]
[2018-03-23] MEDS: Multivitamins, Adult 10 ML, Folic Acid 1 MG, Thiamine HCl 100 MG in Dextrose 5 %-0.45 %... IV SCH (09:45)
[2018-03-23] MEDS ORDERED: Potassium Phosphate 15 MMOL in Sodium Chloride 0.9% 250 ML 250 ML IV PRN (10:00)
[2018-03-23] MEDS ORDERED: Magnesium Oxide 400 MG TAB PO PRN (10:00)
[2018-03-23] MEDS ORDERED: Potassium Chloride 40 MEQ in Sodium Chloride 0.9% 250 ML 250 ML IVPB PRN (10:00)
[2018-03-23] MEDS ORDERED: Potassium Phosphate 12 MMOL in Sodium Chloride 0.9% 250 ML 250 ML IV PRN (10:00)
[2018-03-23] MEDS ORDERED: Potassium Chloride 40 MEQ in Premix Bag 1 BAG IVPB PRN (10:00)
[2018-03-23] MEDS ORDERED: Magnesium 2 GM/NS 0.9% 100 ML 2 GM in Premix Bag 1 BAG IVPB PRN (10:00)
[2018-03-23] MEDS ORDERED: Potassium Chloride 20 MEQ TAB PO PRN (10:00)
[2018-03-23] MEDS ORDERED: Potassium Phosphate 9 MMOL in Sodium Chloride 0.9% 100 ML IVPB PRN (10:00)
[2018-03-23 10:16] LABS: Phosphorus 2.1 mg/dL (2.3-4.7)
[2018-03-23] MEDS: Famotidine/PF 20 mg/2ml Vial SLOW IVP SCH ×2 (10:28→22:31)
[2018-03-23] MEDS: Lisinopril 20 MG TAB PO SCH ×4 (10:47→22:59)
[2018-03-23] MEDS: Aspirin 325 mg Enteric Coated Tablet PO SCH (10:47)
[2018-03-23] MEDS: Carvedilol 3.125 MG TAB PO SCH ×2 (10:48→18:08)
[2018-03-23] MEDS: Multivitamin W/ Minerals 1 TAB PO SCH (10:48)
[2018-03-23] MEDS ORDERED: Aminocaproic Acid 5 GM/20 ML VIAL ONE (13:14)
[2018-03-23] MEDS ORDERED: Papaverine 60 MG/2 ML VIAL ONE (13:14)
[2018-03-23] MEDS ORDERED: Heparin 30,000 units/30 ml VIAL ONE (13:14)
[2018-03-23] MEDS ORDERED: Lidocaine 2% PF 100 mg/5 ml Syringe ONE (13:14)
[2018-03-23] MEDS ORDERED: Mannitol 12.5 GM/50 ML ONE (13:14)
[2018-03-23] MEDS ORDERED: Protamine Sulfate 250 MG/25 ML VIAL ONE (13:14)
[2018-03-23] MEDS ORDERED: Magnesium 5 GM/10 ML VIAL ONE (13:14)
[2018-03-23] MEDS ORDERED: Heparin 5,000 UNITS/ML VIAL ONE (13:14)
[2018-03-23] MEDS ORDERED: Thrombin 5000 UNITS/5 ML VIAL ONE (13:14)
[2018-03-23] MEDS ORDERED: Potassium Chloride 60 MEQ/30 ML VIAL ONE (13:14)
[2018-03-23] MEDS ORDERED: Calcium Chloride 1 GM/10 ML Abboject SYRINGE ONE (13:14)
[2018-03-23] MEDS ORDERED: Cardioplegic Soln 1,000 ML BAG ONE (13:14)
[2018-03-23] MEDS ORDERED: Sodium Bicarb 50 MEQ/50 ML VIAL ONE (13:14)
--- NOTE | 2018-03-23 17:50 | EKG ---
Test Reason : ROSC Blood Pressure : / mmHG Vent. Rate : 071 BPM Atrial Rate : 071 BPM P-R Int : 140 ms QRS Dur : 098 ms QT Int : 464 ms P-R-T Axes : 072 067 199 degrees QTc Int : 504 ms Normal sinus rhythm Possible Left atrial enlargement Left ventricular hypertrophy with repolarization abnormality Prolonged QT Abnormal ECG Confirmed by LIBBY RUIZ ([id number]), brands editor GABRIEL SALCIDO ([id number]) on 03/23/2018 5:49:09 PM Referred By: COURTNEY RUIZ Confirmed By:LIBBY RUIZ
[2018-03-23] MEDS: Atorvastatin Calcium 40 MG TAB PO SCH ×2 (21:36→22:33)
[2018-03-23] MEDS: hydrALAZINE 20 MG/ML VIAL SLOW IVP PRN (22:33)
[2018-03-24] MEDS ORDERED: Diazepam 5 MG TAB PO PRN (04:00)
[2018-03-24 04:30] LABS: #Basophils 0.1 thou/uL (0.0-0.2); #Eosinphils 0.1 thou/uL (0.0-0.7); #Lymphocytes 1.1 thou/uL (1.20-3.40); #Monocytes 0.6 thou/uL (0.11-0.59); #Neutrophils 5.9 thou/uL (1.40-6.50); %Basophils 0.7 % (0.0-1.0); %Eosinophils 1.4 % (0.0-10.0); %Lymphocytes 14.3 % (21.0-51.0); %Monocytes 7.5 % (0.0-10.0); %Neutrophils 76.2 % (42.0-75.0); Hemoglobin 12.4 g/dL (14.0-18.0); Mean Corpuscular HGB CONC 33.3 g/dL (32.0-36.0); Mean Corpuscular Hemoglobin 31.5 pg (27.0-31.0); Mean Corpuscular Volume 94.6 fL (78.0-98.0); Mean Platelet Volume 9.9 fL (7.4-10.4); Platelet Count 116 thou/uL (130-400); RBC Distribution Width 11.9 % (11.5-14.5); Red Blood Cell (RBC) Count 3.95 mill/uL (4.70-6.10); White Blood Cell (WBC) Count 7.7 thou/uL (4.8-10.8)
[2018-03-24 04:48] LABS: ALT (SGPT) 36 U/L (8-55); AST (SGOT) 52 U/L (5-34); Alkaline Phosphatase 96 U/L (40-150); Anion Gap 10 mmol/L (10-20); BUN (Urea Nitrogen) 11 mg/dL (8.4-25.7); Bilirubin, Total 1.3 mg/dL (0.2-1.2); Calc. Creatinine Clearance 0 mL/min (70-130); Calcium 8.8 mg/dL (7.8-10.44); Carbon Dioxide 25 mmol/L (23-31); Chloride 103 mmol/L (98-107); Estimated GFR-MDRD Greater than 90; Glucose 102 mg/dL (80-115); Magnesium 1.8 mg/dL (1.6-2.6); Phosphorus 2.9 mg/dL (2.3-4.7); Potassium 3.8 mmol/L (3.5-5.1); Sodium 134 mmol/L (136-145)
--- NOTE | 2018-03-24 05:50 | PDOC.FM ---
- Subjective Subjective: Mr. Vines is resting comfortably in bed, sedated, orientedx0. Denies pain. no reports overnight. - Objective Vital Signs & Weight: Vital Signs (12 hours) Temp Pulse BP 03/24/18 00:00 97.5 F L 145/60 H 03/23/18 22:33 55 L 192/77 H 03/23/18 20:00 97.2 F L 171/72 H Weight Admit Weight 62.8 kg Weight 57.9 g Most Recent Monitor Data Heart Rate from ECG 55 NIBP 126/67 NIBP BP-Mean 86 Respiration from ECG 17 SpO2 100 I&O: 03/22/18 03/23/18 03/24/18 06:59 06:59 06:59 Intake Total 3405.6 2480 991 Output Total 880 1605 1590 Balance 2525.6 875 -599 Result Diagrams: 03/24/18 04:16 03/24/18 04:16 <Doron Guillaume - Last Filed: 03/24/18 07:21> - Objective Vital Signs & Weight: Vital Signs (12 hours) Temp Pulse BP Pulse Ox 03/24/18 08:21 136/72 03/24/18 07:18 155/88 H 97 03/24/18 07:00 97.9 F 03/24/18 04:00 97.8 F 128/63 03/24/18 00:00 97.5 F L 145/60 H 03/23/18 22:33 55 L 192/77 H Weight Admit Weight 62.8 kg Weight 57.9 g Most Recent Monitor Data Heart Rate from ECG 58 NIBP 177/70 NIBP BP-Mean 105 Respiration from ECG 16 SpO2 98 I&O: 03/23/18 03/24/18 03/25/18 06:59 06:59 06:59 Intake Total 2480 1452.8 120 Output Total 1605 1715 190 Balance 875 -262.2 -70 Result Diagrams: 03/24/18 04:16 03/24/18 04:16 <Marti Porter - Last Filed: 03/24/18 10:34> Phys Exam - Physical Examination Constitutional: NAD HEENT: moist MMs Neck: no JVD Respiratory: no wheezing, no rales, no rhonchi Cardiovascular: no significant murmur, no rub bradycardia Gastrointestinal: soft, non-tender, no distention Musculoskeletal: no edema, pulses present Neurological: non-focal, moves all 4 limbs Skin: no rash, normal turgor <Doron Guillaume - Last Filed: 03/24/18 07:21> Dx/Plan (1) Acute respiratory failure with hypoxia and hypercapnia Code(s): J96.01 - ACUTE RESPIRATORY FAILURE WITH HYPOXIA; J96.02 - ACUTE RESPIRATORY FAILURE WITH HYPERCAPNIA Status: Acute (2) Cardiac arrest, cause unspecified Code(s): I46.9 - CARDIAC ARREST, CAUSE UNSPECIFIED Status: Acute (3) Hypokalemia Code(s): E87.6 - HYPOKALEMIA Status: Acute (4) Transaminitis Code(s): R74.0 - NONSPEC ELEV OF LEVELS OF TRANSAMNS & LACTIC ACID DEHYDRGNSE Status: Acute - Plan Plan: ROSC s/p cardiac arrest with defib x2 - was intubated, admitted to CCU with sedation protocol, extubated after <24 hours - Cardiology consulted, Dr. Snider - ECHO showed LVEF of 35-40% - normal FLP, normal HgA1c, cause of heart failure likely 2/2 untreated htn, alcohol abuse - started on aspirin, statin, beta bartolo and ACEI - cardiac cath showed 3 vessel disease, cabg recommended by cardiology. - currently patient is declining CABG - question decision making abilities at this time, he has been agitated and his mental status has not been completely intact alcohol withdrawal - currently mildly sedated, minimal agitation with Dex and propofol - consider switching to librium taper today acute hypoxic resp failure-resolved - 2/2 #1, intubated <24 hours - Doing well after extubation elevated cardiac enzymes - 2/2 #1 - continue to trend, most recent was 2.51 hypokalemia - continue to trend, supplement as needed transaminitis - continue to monitor, likely 2/2 to alcohol abuse - ASE protocol Hypertension - Started on ACEI and beta bartolo - Will continue to monitor closely Code: full ppx: lovenox Dispo: continue ASE protocol, monitor closely for withdrawal <Doron Guillaume - Last Filed: 03/24/18 07:21> Attending Addendum - Attending Addendum Date/Time: 03/24/18 1033 I personally evaluated the patient and discussed the management with Dr. Giullaume. I agree with the History, Examination, Assessment and Plan documented above with any addition or exceptions noted below. The patient is now on a precedex drip for alcohol withdrawal. Pt's beta bartolo is being stopped by cards 2/2 bradycardia. Pt is oriented to person and place but not time. Still somnolent. Once patient is more awake we will readdress possible cabg. <Marti Porter - Last Filed: 03/24/18 10:34>
[2018-03-24] MEDS: Multivitamins, Adult 10 ML, Folic Acid 1 MG, Thiamine HCl 100 MG in Dextrose 5 %-0.45 %... IV SCH (08:21)
[2018-03-24] MEDS: Magnesium Oxide 400 MG TAB PO SCH (08:21)
[2018-03-24] MEDS: Multivitamin W/ Minerals 1 TAB PO SCH (08:21)
[2018-03-24] MEDS: Famotidine/PF 20 mg/2ml Vial SLOW IVP SCH ×2 (08:21→20:09)
[2018-03-24] MEDS: Lisinopril 20 MG TAB PO SCH ×2 (08:21→20:09)
[2018-03-24] MEDS: Aspirin 325 mg Enteric Coated Tablet PO SCH (08:21)
--- NOTE | 2018-03-24 09:36 | PRG ---
DATE OF SERVICE: 03/24/2018 SUBJECTIVE: Mr. Vines is resting comfortably. No complaints. OBJECTIVE: VITAL SIGNS: His blood pressure is 150/80, pulse is in the low 50s, it is sinus with PACs. LUNGS: Clear. CARDIAC: Normal S1, normal S2. ABDOMEN: Soft, nontender. EXTREMITIES: Warm and dry. No clubbing, cyanosis or edema. PERTINENT LABORATORY DATA: Sodium is 134, potassium is 3.8. ASSESSMENT: 1. Three-vessel coronary artery disease with moderate left ventricular dysfunction. 2. Sinus bradycardia. PLAN: 1. We will need to stop beta blockers presently and observe heart rate. Discontinue lisinopril and statins. 2. Okay to move to telemetry.
[2018-03-24] MEDS: Magnesium Oxide 400 MG TAB PO PRN ×2 (12:17→20:09)
--- NOTE | 2018-03-24 13:31 | PRG ---
DATE OF SERVICE: 03/24/2018 SUBJECTIVE: This is a 63-year-old gentleman, status post encephalopathy, alcohol abuse. OBJECTIVE: VITAL SIGNS: Pulse 57, sats are 97% on room air, respirations 21, blood pressure 136/72. GENERAL: More responsive this morning. He is less agitated. He is on Valium p.r.n. He is on Prece dex as needed. His confusion is better. CHEST: Decreased breath sounds, no wheezing. CARDIAC: Normal S1 and S2. No gallops. ABDOMEN: Soft, no masses. LABORATORY DATA: Electrolytes are normal. Liver functions unremarkable. Bilirubin is down to 1.3. White count 7000. IMPRESSION: Status post respiratory failure, status post ETOH with encephalopathy. PLAN: Continue supportive care. Continue low dose of Precedex. Continue ICU observation for the ne xt 24 hours. [id number]-[id number] critical care time.
[2018-03-24] MEDS: Atorvastatin Calcium 40 MG TAB PO SCH (20:09)
[2018-03-25 05:08] LABS: #Eosinphils 0.1 thou/uL (0.0-0.7); #Lymphocytes 1.2 thou/uL (1.20-3.40); #Monocytes 0.9 thou/uL (0.11-0.59); #Neutrophils 5.7 thou/uL (1.40-6.50); %Basophils 0.2 % (0.0-1.0); %Eosinophils 0.7 % (0.0-10.0); %Neutrophils 73.1 % (42.0-75.0); Hemoglobin 12.2 g/dL (14.0-18.0); Mean Corpuscular HGB CONC 33.3 g/dL (32.0-36.0); Mean Corpuscular Hemoglobin 31.3 pg (27.0-31.0); Mean Corpuscular Volume 94.2 fL (78.0-98.0); Mean Platelet Volume 9.7 fL (7.4-10.4); Platelet Count 155 thou/uL (130-400); Red Blood Cell (RBC) Count 3.89 mill/uL (4.70-6.10); White Blood Cell (WBC) Count 7.8 thou/uL (4.8-10.8)
[2018-03-25 05:14] LABS: Phosphorus 2.8 mg/dL (2.3-4.7)
[2018-03-25 06:12] LABS: ALT (SGPT) 34 U/L (8-55); AST (SGOT) 39 U/L (5-34); Albumin 2.9 g/dL (3.4-4.8); Alkaline Phosphatase 104 U/L (40-150); BUN (Urea Nitrogen) 10 mg/dL (8.4-25.7); Bilirubin, Total 1.2 mg/dL (0.2-1.2); Calc. Creatinine Clearance 87 mL/min (70-130); Calcium 8.4 mg/dL (7.8-10.44); Carbon Dioxide 25 mmol/L (23-31); Estimated GFR-MDRD Greater than 90; Globulin 2.9 g/dL (2.4-3.5); Glucose 139 mg/dL (80-115); Magnesium 1.6 mg/dL (1.6-2.6); Protein, Total 5.8 g/dL (5.8-8.1)
[2018-03-25 06:20] LABS: Anion Gap 11 mmol/L (10-20); Chloride 101 mmol/L (98-107); Potassium 3.4 mmol/L (3.5-5.1); Sodium 132 mmol/L (136-145)
--- NOTE | 2018-03-25 06:36 | PDOC.FM ---
- Subjective Subjective: Mr. Vines is resting comfortably in bed, He is alert not orientedx3. denies any pain. - Objective Vital Signs & Weight: Vital Signs (12 hours) Temp BP Pulse Ox 03/25/18 04:00 98.2 F 172/72 H 03/25/18 00:00 98.3 F 128/58 L 03/24/18 20:09 178/75 H 03/24/18 20:00 98.2 F 178/75 H 97 Weight Admit Weight 62.8 kg Weight 61 kg Most Recent Monitor Data Heart Rate from ECG 77 NIBP 137/67 NIBP BP-Mean 90 Respiration from ECG 20 SpO2 97 I&O: 03/23/18 03/24/18 03/25/18 06:59 06:59 06:59 Intake Total 2480 1452.8 2748.9 Output Total 1605 1715 1430 Balance 875 -262.2 1318.9 Result Diagrams: 03/25/18 04:40 03/25/18 04:40 <Doron Guillaume - Last Filed: 03/25/18 07:29> - Objective Vital Signs & Weight: Vital Signs (12 hours) Temp BP Pulse Ox 03/25/18 12:00 99.2 F 03/25/18 09:00 99.0 F 03/25/18 08:37 172/72 H 03/25/18 08:00 163/77 H 94 L 03/25/18 04:00 98.2 F 172/72 H Weight Admit Weight 62.8 kg Weight 61 kg Most Recent Monitor Data Heart Rate from ECG 93 NIBP 135/57 NIBP BP-Mean 83 Respiration from ECG 19 SpO2 98 I&O: 03/24/18 03/25/18 03/26/18 06:59 06:59 06:59 Intake Total 1452.8 2748.9 320 Output Total 1715 1430 1220 Balance -262.2 1318.9 -900 Result Diagrams: 03/25/18 04:40 03/25/18 04:40 <Marti Porter - Last Filed: 03/25/18 14:44> Phys Exam - Physical Examination Constitutional: NAD HEENT: moist MMs Neck: no JVD Respiratory: no wheezing, no rales, no rhonchi Cardiovascular: RRR, no significant murmur, no rub Gastrointestinal: non-tender, no distention Musculoskeletal: no edema, pulses present Neurological: moves all 4 limbs Psychiatric: normal affect Skin: no rash <Doron Guillaume - Last Filed: 03/25/18 07:29> Dx/Plan (1) Acute respiratory failure with hypoxia and hypercapnia Code(s): J96.01 - ACUTE RESPIRATORY FAILURE WITH HYPOXIA; J96.02 - ACUTE RESPIRATORY FAILURE WITH HYPERCAPNIA Status: Acute (2) Cardiac arrest, cause unspecified Code(s): I46.9 - CARDIAC ARREST, CAUSE UNSPECIFIED Status: Acute (3) Hypokalemia Code(s): E87.6 - HYPOKALEMIA Status: Acute (4) Transaminitis Code(s): R74.0 - NONSPEC ELEV OF LEVELS OF TRANSAMNS & LACTIC ACID DEHYDRGNSE Status: Acute - Plan Plan: ROSC s/p cardiac arrest with defib x2 - was intubated, admitted to CCU with sedation protocol, extubated after <24 hours - Cardiology consulted, Dr. Snider - ECHO showed LVEF of 35-40% - normal FLP, normal HgA1c, cause of heart failure likely 2/2 untreated htn, alcohol abuse - started on aspirin, statin, and ACEI. BBlocker DCd 2/2 bradycardia - cardiac cath showed 3 vessel disease, cabg recommended by cardiology. - currently patient is declining CABG - question decision making abilities at this time, he has been agitated and his mental status has not been completely intact alcohol withdrawal - currently mildly sedated, minimal agitation with Dex and propofol - consider switching to librium taper today - AOx0 acute hypoxic resp failure-resolved - 2/2 #1, intubated <24 hours - Doing well after extubation elevated cardiac enzymes - 2/2 #1 - continue to trend, most recent was 2.51 hypokalemia - continue to trend, supplement as needed transaminitis - continue to monitor, likely 2/2 to alcohol abuse - ASE protocol Hypertension - Started on ACEI, DCd bblocker 2/2 bradycardia - Will continue to monitor closely Code: full ppx: lovenox Dispo: continue ASE protocol, wean dex, transition to tele <Doron Guillaume - Last Filed: 03/25/18 07:29> Attending Addendum - Attending Addendum Date/Time: 03/25/18 0842 I personally evaluated the patient and discussed the management with Dr. Guillaume. I agree with the History, Examination, Assessment and Plan documented above with any addition or exceptions noted below. The patient is not oriented to place this morning and he knew he was in a hospital yesterday. He is off precedex drip. Will transfer to floor. As mental status clears, we need to rediscuss possible cabg. Transfer to tele. <Marti Porter - Last Filed: 03/25/18 14:44>
--- NOTE | 2018-03-25 08:26 | PRG ---
DATE OF SERVICE: 03/25/2018 SUBJECTIVE: Mr. Vines is awake and alert. No chest pain or pressure. No heaviness. He feels well. PHYSICAL EXAMINATION: VITAL SIGNS: Blood pressure 169/80 and pulse is 55. LUNGS: Clear. CARDIAC: Normal S1 and normal S2. ABDOMEN: Soft and nontender. EXTREMITIES: No edema. ASSESSMENT: 1. Multivessel coronary artery disease. 2. Status post respiratory failure, now off the ventilator, doing well. 3. Mental status improved. PLAN: 1. He is to be transferred to telemetry. 2. Beta bartolo was stopped due to bradycardia. 3. Mental status is improved, consideration for re-discussing bypass seems appropriate.
[2018-03-25] MEDS: Aspirin 325 mg Enteric Coated Tablet PO SCH (08:37)
[2018-03-25] MEDS: Lisinopril 20 MG TAB PO SCH ×2 (08:37→21:30)
[2018-03-25] MEDS: Famotidine/PF 20 mg/2ml Vial SLOW IVP SCH ×2 (08:37→21:29)
[2018-03-25] MEDS: Multivitamin W/ Minerals 1 TAB PO SCH (08:37)
[2018-03-25] MEDS: Magnesium Oxide 400 MG TAB PO SCH (08:37)
[2018-03-25] MEDS ORDERED: Communication Order-Pharmacy FS SCH (09:28)
--- NOTE | 2018-03-25 09:50 | PRG ---
DATE OF SERVICE: 03/25/2018 SUBJECTIVE: This is a 63-year-old gentleman post respiratory failure. This morning, he is awake, al ert, responsive. Denies any pain or discomfort. OBJECTIVE: VITAL SIGNS: His blood pressure is 144/77, sats are 95 on room air, pulse 68, afebrile. GENERAL: He is less encephalopathic. CHEST: Decreased breath sounds, no wheezing. CARDIAC: Normal S1 and S2. No gallops. ABDOMEN: Soft, no masses. LABORATORY DATA: Albumin 2.9. His electrolytes are normal. White count is unremarkable. H and H i s stable. IMPRESSION: 1. Status post cardiac arrest. 2. Respiratory failure. 3. Coronary artery disease. PLAN: He can be transferred out of the ICU. Continue cardiac care. We will follow.
[2018-03-25] MEDS: Multivitamins, Adult 10 ML, Folic Acid 1 MG, Thiamine HCl 100 MG in Dextrose 5 %-0.45 %... IV SCH (10:35)
[2018-03-25] MEDS ORDERED: Nicotine 7 MG PATCH TD SCH (16:00)
[2018-03-25] MEDS: Atorvastatin Calcium 40 MG TAB PO SCH (21:30)
[2018-03-26 05:49] LABS: #Eosinphils 0.1 thou/uL (0.0-0.7); #Lymphocytes 1.7 thou/uL (1.20-3.40); #Monocytes 0.9 thou/uL (0.11-0.59); #Neutrophils 4.9 thou/uL (1.40-6.50); %Basophils 0.6 % (0.0-1.0); %Eosinophils 1.6 % (0.0-10.0); %Lymphocytes 21.8 % (21.0-51.0); %Monocytes 11.4 % (0.0-10.0); %Neutrophils 64.6 % (42.0-75.0); Mean Corpuscular HGB CONC 32.2 g/dL (32.0-36.0); Mean Corpuscular Hemoglobin 30.9 pg (27.0-31.0); Mean Platelet Volume 9.1 fL (7.4-10.4); Platelet Count 186 thou/uL (130-400); RBC Distribution Width 12.3 % (11.5-14.5); White Blood Cell (WBC) Count 7.6 thou/uL (4.8-10.8)
[2018-03-26 05:57] LABS: ALT (SGPT) 31 U/L (8-55); AST (SGOT) 31 U/L (5-34); Alkaline Phosphatase 100 U/L (40-150); Anion Gap 10 mmol/L (10-20); BUN (Urea Nitrogen) 11 mg/dL (8.4-25.7); Bilirubin, Total 1.1 mg/dL (0.2-1.2); Calc. Creatinine Clearance 85 mL/min (70-130); Calcium 8.4 mg/dL (7.8-10.44); Carbon Dioxide 24 mmol/L (23-31); Chloride 103 mmol/L (98-107); Estimated GFR-MDRD Greater than 90; Glucose 118 mg/dL (80-115); Magnesium 1.8 mg/dL (1.6-2.6); Sodium 133 mmol/L (136-145)
[2018-03-26] MEDS: Lisinopril 20 MG TAB PO SCH (06:17)
--- NOTE | 2018-03-26 06:22 | PDOC.FM ---
- Subjective Subjective: Patient doing well this AM. No significant overnight events. His and son are at bedside this AM. They have discussed CABG with Dr. Oneal and everyone has agreed to proceed with CABG. Patient denies any shortness of breath, chest pain, diaphoresis, N/V. - Objective MAR Reviewed: Yes Vital Signs & Weight: Vital Signs (12 hours) Temp BP Pulse Ox 03/26/18 04:00 98.8 F 03/26/18 00:00 98.9 F 151/75 H 03/25/18 21:30 169/78 H 03/25/18 20:00 98.3 F 156/67 H 96 Weight Admit Weight 62.8 kg Weight 61 kg Most Recent Monitor Data Heart Rate from ECG 60 NIBP 151/65 NIBP BP-Mean 93 Respiration from ECG 18 SpO2 96 I&O: 03/24/18 03/25/18 03/26/18 06:59 06:59 06:59 Intake Total 1452.8 2748.9 380 Output Total 1715 1430 2460 Balance -262.2 1318.9 -2079 Result Diagrams: 03/26/18 05:36 03/26/18 05:36 EKG Reviewed by me: Yes Radiology Reviewed by me: Yes <Rossana Michelle - Last Filed: 03/26/18 09:20> - Objective Vital Signs & Weight: Vital Signs (12 hours) Temp BP 03/26/18 08:00 97.4 F L 03/26/18 06:17 151/65 H 03/26/18 04:00 98.8 F 127/54 L 03/26/18 00:00 98.9 F 151/75 H Weight Admit Weight 62.8 kg Weight 61 kg Most Recent Monitor Data Heart Rate from ECG 80 NIBP 135/70 NIBP BP-Mean 91 Respiration from ECG 17 SpO2 98 I&O: 03/25/18 03/26/18 03/27/18 06:59 06:59 06:59 Intake Total 2748.9 380 Output Total 1430 2460 250 Balance 1318.9 -0 -250 Result Diagrams: 03/26/18 05:36 03/26/18 05:36 <Dolores Fried - Last Filed: 03/26/18 11:08> Phys Exam - Physical Examination Constitutional: NAD HEENT: moist MMs Neck: supple Respiratory: clear to auscultation bilateral Cardiovascular: RRR Gastrointestinal: soft, no distention Musculoskeletal: no edema, pulses present Neurological: non-focal Psychiatric: normal affect Skin: no rash, cap refill <2 seconds <Rossana Michelle - Last Filed: 03/26/18 09:20> Dx/Plan (1) 3-vessel coronary artery disease Status: Acute (2) Alcohol abuse Code(s): F10.10 - ALCOHOL ABUSE, UNCOMPLICATED Status: Chronic (3) Systolic CHF Code(s): I50.20 - UNSPECIFIED SYSTOLIC (CONGESTIVE) HEART FAILURE Status: Chronic (4) Acute respiratory failure with hypoxia and hypercapnia Code(s): J96.01 - ACUTE RESPIRATORY FAILURE WITH HYPOXIA; J96.02 - ACUTE RESPIRATORY FAILURE WITH HYPERCAPNIA Status: Resolved (5) Cardiac arrest, cause unspecified Code(s): I46.9 - CARDIAC ARREST, CAUSE UNSPECIFIED Status: Resolved (6) Hypokalemia Code(s): E87.6 - HYPOKALEMIA Status: Resolved (7) Transaminitis Code(s): R74.0 - NONSPEC ELEV OF LEVELS OF TRANSAMNS & LACTIC ACID DEHYDRGNSE Status: Resolved - Plan Plan: Severe 3V CAD - Lipid panel wnl, HgA1c wnl - Recommend CABG; Dr. Oneal spoke with patient, patient's , and patient's son around 7:00 AM. They have agreed as a family to proceed with CABG. CABG will take place later this AM. - Lifetime treatment with ASA, Statin - Unable to tolerate BB d/t bradycardia --> Pt's pulse this AM in 80's. After CABG may consider adding BB if pulse will tolerate HFwrEF - Likely 2/2 uncontrolled HTN and alcohol abuse - HgA1c and lipid panel nml - Echo showed LVEF 35-40% - Started on statin, JOSHUA-I, ASA - Unable to tolerate BB due to bradycardia --> Pulse this AM in the 80's; may consider starting back BB if pulse will tolerate after CABG ROSC s/p cardiac arrest with defib x2 - Was intubated, admitted to CCU with sedation protocol, extubated after <24 hours - Cardiology consulted, appreciate recs - ECHO showed LVEF of 35-40% - Normal FLP, normal HgA1c, cause of heart failure likely 2/2 untreated htn, alcohol abuse - Started on aspirin, statin, and ACEI. BBl d/c'd 2/2 bradycardia - Cardiac cath showed 3 vessel disease, CABG recommended by cardiology; see plan as above - Questionable decision making abilities at this time, he has been agitated and his mental status has not been intact Alcohol abuse - Off sedation - ASE scores have been 2-6; last ASE score of 2 - Does not look like patient has required any medications Acute hypoxic resp failure, resolved - 2/2 ROSC s/p cardiac arrest, intubated <24 hours - Doing well after extubation Elevated cardiac enzymes 2/2 AK - 2/2 ROSC s/p cardiac arrest - Cardiac cath showed 3V CAD; recommend CABG Hypokalemia, resolved - Continue to trend, supplement as needed Transaminitis - Continue to monitor, likely 2/2 to alcohol abuse - ASE protocol; score of 2-6 since hospitalization Hypertension - Started on ACEI, DC'd bblocker 2/2 bradycardia - Will continue to monitor closely - Consider increasing dose of JOSHUA-I after CABG Code: Full ppx: Lovenox Dispo: Continue ASE protocol. Plan for CABG this AM. <Rossana Michelle - Last Filed: 03/26/18 09:20> Attending Addendum - Attending Addendum Date/Time: 03/26/18 1340 I personally evaluated the patient and discussed the management with Dr. Michelle I agree with the History, Examination, Assessment and Plan documented above with any addition or exceptions noted below - Patient sitting up in chair at bedside. Denies any complaints. Afebrile VSS. A/P: 1) 3v CAD- family meeting this morning with CV surgery and patient agrees to proceed with CABG. Plans as per CV surgery. 2) s/p cardiac arrest with ROSC- stable. 3) HFrEF - continue JOSHUA and statin. Unable to tolerate beta bartolo due to bradycardia. Continue to monitor. <Dolores Fried - Last Filed: 03/26/18 11:08>
[2018-03-26] MEDS ORDERED: Communication Order-Pharmacy FS SCH (08:11)
[2018-03-26] MEDS ORDERED: CABG-Vancomycin 1 GM in Premix Bag 1 BAG IVPB SCH (08:15)
--- NOTE | 2018-03-26 08:16 | PRG ---
DATE OF SERVICE: 03/26/2018. SUBJECTIVE: He is awake and alert. Apparently, he is now consenting for bypass surgery. He has no acute complaints. PHYSICAL EXAMINATION: VITAL SIGNS: Temperature is 98.8, pulse 60, blood pressure 151/65, O2 saturation 96% on room air. HEENT: Unremarkable. NECK: No JVD. CHEST: Clear. CARDIAC: S1 and S2 regular. EXTREMITIES: No edema. LABORATORY DATA: White blood cell count 7.6, hematocrit 37.4, platelet count 186. Sodium 133, potas sium 4, chloride 103, CO2 24, BUN 11, creatinine 0.7, glucose 118. ASSESSMENT: 1. Status post sudden cardiac . 2. Three-vessel coronary artery disease. 3. Alcohol withdrawal, which is now resolved. PLAN: Coronary artery bypass grafting surgery today. We will follow perioperatively.
[2018-03-26] MEDS ORDERED: Albumin 5% 500 ML ONE (08:58)
[2018-03-26] MEDS ORDERED: Heparin 10,000 UNITS/1 ML VIAL 30,000 UNITS in Sodium Chloride 0.9% 1,000 ML FS SCH (10:15)
[2018-03-26] MEDS ORDERED: Fentanyl 250 MCG/5 ML VIAL ONE ×2 (10:33)
[2018-03-26] MEDS ORDERED: Midazolam HCl 5 mg/5 ml Vial ONE (10:33)
[2018-03-26] MEDS ORDERED: HYDROcodone/Acetaminophen 5/325 mg Tablet PO PRN ×2 (11:11)
[2018-03-26] MEDS ORDERED: Potassium Chloride 20 MEQ/100 ML PREMIX BAG IVPB PRN (11:11)
[2018-03-26] MEDS ORDERED: Ondansetron PF 4 MG/2 ML Vial IVP PRN (11:11)
[2018-03-26] MEDS ORDERED: Acetaminophen 325 MG TAB PO PRN (11:11)
[2018-03-26] MEDS ORDERED: Guaifenesin DM 100-10/5 ML UDCUP PO PRN (11:11)
[2018-03-26] MEDS ORDERED: Bisacodyl 5 MG TAB PO PRN (11:11)
[2018-03-26] MEDS ORDERED: Nitroglycerin 50 MG/250 ML BOT 250 ML IVPB PRN (11:11)
[2018-03-26] MEDS ORDERED: Mag-Al 1200 mg/1200 mg/30 ML UDCUP PO PRN (11:11)
[2018-03-26] MEDS ORDERED: Norepinephrine 8 MG/0.9% NS 250 ML IVPB PRN (11:11)
[2018-03-26] MEDS ORDERED: Hetastarch 6% 500 ML 500 ML IVPB PRN (11:11)
[2018-03-26] MEDS ORDERED: Promethazine HCl 25 MG/ML VIAL IM PRN (11:11)
[2018-03-26] MEDS ORDERED: Fentanyl 100 MCG/2 ML VIAL SLOW IVP PRN (11:11)
[2018-03-26] MEDS ORDERED: Post-Op Insulin Drip Protocol IVPB ONE (11:11)
[2018-03-26] MEDS ORDERED: Bisacodyl 10 MG SUPP PR PRN (11:11)
[2018-03-26] MEDS ORDERED: Dextrose 5% in Water 1,000 ML IV PRN (11:18)
[2018-03-26] MEDS ORDERED: Dextrose 50% Abboject 50 ML SYRINGE SLOW IVP PRN (11:18)
[2018-03-26] MEDS ORDERED: PHENYLEPHRINE-NS 100 MCG/ML 10 ML SYRINGE ONE ×2 (15:02→15:07)
[2018-03-26] MEDS ORDERED: PROPOFOL 200 MG/20 ML VIAL ONE (15:02)
[2018-03-26] MEDS ORDERED: Vecuronium 10 MG VIAL ONE (15:02)
[2018-03-26] MEDS: Sodium Chloride 0.9% 1,000 ML IV SCH (16:00)
[2018-03-26] MEDS: hydrALAZINE 20 MG/ML VIAL SLOW IVP PRN (16:00)
[2018-03-26] MEDS: Ketorolac Tromethamine 30 MG/ML VIAL IVP SCH ×3 (16:02→23:00)
[2018-03-26] MEDS: Insulin Regular 300 UNITS/3 ML VIAL SC PRN ×2 (16:10→21:32)
[2018-03-26 16:16] LABS: INR-International Normal Ratio 1.3; PTT 31.3 SEC (22.9-36.1); Prothrombin Time 15.8 SEC (12.0-14.7)
[2018-03-26 16:17] LABS: Actual Bicarbonate (HCO3a) 20.6 mEq/L (22-28); Base Excess (BEa) -2.4 mEq/L (-2.0 to +3.0); CO2 Tension 29.7 mmHg (35.0-45.0); Calcium, Ionized 1.14 mmol/L (1.12-1.30); Carboxyhemoglobin (COHb) 0.6 gm% (0.0-3.0); Hemoglobin (Hb) 10.6 g/dL (14.0-18.0); O2 Tension (PaO2) 138.9 mmHg (> 80.0); Potassium - ABG Lab 4.02 mmol/L (3.70-5.30); pH, Arterial 7.46 (7.35-7.45)
[2018-03-26 16:18] LABS: ALV-art Gradient 180.475 (0-20); Puncture Site ALINE
[2018-03-26 16:22] LABS: #Eosinphils 0.1 thou/uL (0.0-0.7); #Lymphocytes 0.9 thou/uL (1.20-3.40); #Monocytes 0.4 thou/uL (0.11-0.59); #Neutrophils 7.1 thou/uL (1.40-6.50); %Basophils 0.3 % (0.0-1.0); %Eosinophils 1.1 % (0.0-10.0); %Lymphocytes 10.9 % (21.0-51.0); %Monocytes 4.7 % (0.0-10.0); %Neutrophils 83.1 % (42.0-75.0); Hemoglobin 9.9 g/dL (14.0-18.0); Mean Corpuscular HGB CONC 32.8 g/dL (32.0-36.0); Mean Corpuscular Volume 97.6 fL (78.0-98.0); Mean Platelet Volume 9.7 fL (7.4-10.4); Platelet Count 113 thou/uL (130-400); RBC Distribution Width 12.6 % (11.5-14.5); Red Blood Cell (RBC) Count 3.09 mill/uL (4.70-6.10); White Blood Cell (WBC) Count 8.5 thou/uL (4.8-10.8)
[2018-03-26 16:33] LABS: Anion Gap 13 mmol/L (10-20); BUN (Urea Nitrogen) 10 mg/dL (8.4-25.7); Calc. Creatinine Clearance 104 mL/min (70-130); Calcium 8.2 mg/dL (7.8-10.44); Carbon Dioxide 19 mmol/L (23-31); Chloride 108 mmol/L (98-107); Estimated GFR-MDRD Greater than 90; Glucose 134 mg/dL (80-115); Potassium 4.7 mmol/L (3.5-5.1); Sodium 135 mmol/L (136-145)
[2018-03-26 16:37] LABS: MDiff Complete? YES; PLT Morphology Comment Appears Decreased; Polychromasia SLIGHT = 2-3 cells (100X) (0-2/hpf)
[2018-03-26] MEDS: Fentanyl 100 MCG/2 ML VIAL SLOW IVP PRN ×2 (17:31→19:46)
--- NOTE | 2018-03-26 17:34 | OP ---
DATE OF PROCEDURE: 03/26/2018 PROCEDURE PERFORMED: Coronary artery bypass grafting x3 with left internal mammary artery to the dis sean LAD and reverse greater saphenous vein graft from the aorta to the second obtuse marginal and fro m the aorta to the PDA, ligation of the left atrial appendage. PREOPERATIVE DIAGNOSIS: Coronary artery disease, status post out of hospital ventricular fibrillator y arrest. POSTOPERATIVE DIAGNOSIS: Coronary artery disease, status post out of hospital ventricular fibrillato ry arrest. SURGEON: Pablo Levine M.D. ADDICTIONS RECOVERY SPECIALIST: Jason Oneal M.D. ANESTHESIA: General endotracheal anesthesia. INDICATIONS: The patient is a 63-year-old alcoholic who had a witnessed arrest. Bystander CPR suppo rted the patient until EMS arrived and successfully defibrillated him. He initially refused coronary revascularization, but has now agreed. In the intervening time, he has gone through alcohol withdra wal and has apparently recovered without sequela. He is now taken to the operating room for revascul arization. FINDINGS: Pump time 80 minutes, crossclamp time 43 minutes. Hyperinflated lungs. Good quality JOANNE and saphenous vein. The LAD palpably was a diffusely diseased vessel. It was about 2 mm in diameter , grafted a little beyond the junction of the middle and distal thirds. The diagonals were explored and none were found to be large enough to graft. The diagonal corresponding to the preoperative lead chosen target was only about a 1 mm vessel. The second obtuse marginal was about a 2.5 mm vessel. The PDA was about a 1.5-2 mm vessel. The left atrial appendage was relatively broad based. The berenice cardium was closed. NARRATIVE REPORT: After informed consent was obtained, the patient was taken to the operating room a nd placed in supine position on the operating table. After the induction of general anesthesia, the patient's left upper chest was prepped and draped in the sterile fashion. With the patient in [place], the left upper chest was prepped and draped in the sterile fashion and a triple-lumen centra l line kit was used to place left subclavian line by the Seldinger technique. All 3 ports aspirated and flushed easily. The line was secured. Ultrasonographic mapping of the saphenous vein in the lef t lower extremity was performed. The patient's torso, groins and lower extremities were then prepped and draped in sterile fashion. An assistant women's rowing coach harvested the greater saphenous vein from the left lowe r extremity endoscopically. It was prepared for use as a graft and the port site a little above the knee was closed in layers with subcutaneous and subcuticular Vicryl. A median sternotomy was perform ed. The left internal mammary artery was mobilized as a skeletonized in situ graft above the xiphoid to the level of the subclavian vein through an extrapleural exposure. The patient was heparinized a nd the mammary was ligated and divided distally. There was excellent flow through the mammary, which was instilled intraluminally with papaverine solution. The mammary bed was inspected for hemostasis and the JOANNE retractor was replaced with a Jones retractor. The hilar reflections of the left pleura were mobilized. The pericardium was opened and marsupialized. The aorta was palpated and was soft. A double concentric pursestring of #2 Ethibond was placed in the ascending aorta just beyond the pe ricardial reflection. A single pursestring was placed in the right atrial appendage. Aortic and hayden ous cannulae were inserted and secured by their pursestrings. The plane between the aorta and the pu lmonary artery was developed. Cardiopulmonary bypass was instituted and the patient systemically recruiter coordinator led. The heart was examined. The vessels to be bypassed were identified. A longitudinal slit was m aminata in the pericardium anterior to the left phrenic nerve through which the mammary could be passed a nd the aortic crossclamp was applied and cardioplegia was administered through an aortic root needle. When arrest has been achieved, attention was turned to the PDA as the vein was of uniform caliber. The PDA was opened with a [place] blade and [place] scissors and saphenous vein was anastomosed ther e end-to-side with a running Prolene suture and the anastomosis tested by flushing cold cardioplegic down the graft. Attention was then turned to the circumflex system. The OM2 was opened just distal to some visible and palpable plaquing. Saphenous vein was anastomosed there in similar fashion. The first diagonal was then explored. It was visible very distally where it was a tiny vessel, but up n ear its origin from the LAD where it was identified deep within fat, it was still only about a 1 mm v essel and it was opted not to attempt grafting at. The LAD was then opened distally at a soft spot. The mammary is anastomosed there with running 7-0 Prolene and the mammary tacked to the epicardium. The left atrial appendage had already been oversewn with 2 rows of running horizontal mattress 3-0 P rolene suture prior to the first distal anastomosis. The aortic crossclamp was replaced with the par tial occluding clamp and aortotomies were made in the ascending aorta with a scalpel and punch incorp orating the root needle site for one of those aortotomies. The PDA graft was brought along the right side of the heart and anastomosed to the more proximal aortotomy and the OM graft brought along the left side of the heart and anastomosed to the more distal aortotomy. The partial occluding clamp was removed and the vein grafts were deaired. The bulldogs were removed from them. The anastomoses wer e inspected for hemostasis and the proximal anastomoses were marked with small Hemoclips. The atrial appendage suture line was inspected. A posterior pericardial drain was brought out through a separa te incision and secured to the skin suture. Right atrial and right ventricular temporary epicardial pacing wires were placed. A small rent in the left pleura near the apex was aspirated using an endot tara sucker and over a Valsalva maneuver closed with running Prolene suture as the sucker was mikie zandra. The rent in the pleura extended, but did seem to be amenable to Prolene suture repair. The pat ient was then from cardiopulmonary bypass. The aortic and venous cannulae were removed and their pursestring secured. Protamine was administered. When hemostasis was adequate, an anterior m ediastinal drain was placed and the pericardium was easily closed over with running Vicryl. Vancomyc in paste and platelet-rich GPS were applied to the cut surfaces of the sternum. The sternum was then reapproximated with a combination of simple and tvocni-ls-marrs #7 stainless steel wires. The fasci a and subcutaneous tissue was irrigated and treated with platelet-poor GPS. The fascia was closed ov er the wires with heavy Vicryl. Additional platelet-poor GPS was applied to the subcutaneous layer, which was then reapproximated. The skin was closed with Vicryl subcuticular suture. The wounds were dressed and the patient was taken to the intensive care unit in stable condition.
[2018-03-26] MEDS ORDERED: Morphine 2 MG/ML SYRINGE SLOW IVP PRN (17:40)
--- NOTE | 2018-03-26 18:00 | RAD ---
CHEST ONE VIEW: Comparison: 03-20-18 History: Status post open heart surgery. FINDINGS: There is an endotracheal tube just beyond the clavicles. The left sided central venous catheter termi nates in the region of the superior vena cava. Mediastinal drainage catheters are noted. There are post-operative sternotomy wires. Pulmonary vasculature and hilum are normal. Costophrenic angles are clear. No masses or consolidation . No pneumothorax or osseous abnormality. IMPRESSION: 1. No acute cardiopulmonary process. 2. Findings compatible with recent open heart surgery. POS: MYLES
[2018-03-26] MEDS: Atorvastatin Calcium 40 MG TAB PO SCH (21:29)
[2018-03-26] MEDS: Famotidine/PF 20 mg/2ml Vial SLOW IVP SCH (21:29)
[2018-03-26 22:16] LABS: Hemoglobin 9.6 g/dL (14.0-18.0)
[2018-03-26 22:28] LABS: Potassium 4.7 mmol/L (3.5-5.1)
[2018-03-27] MEDS: Sodium Chloride 0.9% 1,000 ML IV SCH (04:20)
[2018-03-27 04:43] LABS: #Lymphocytes 1.3 thou/uL (1.20-3.40); #Neutrophils 6.3 thou/uL (1.40-6.50); %Basophils 0.4 % (0.0-1.0); %Eosinophils 0.4 % (0.0-10.0); %Lymphocytes 15.1 % (21.0-51.0); %Monocytes 11.7 % (0.0-10.0); %Neutrophils 72.4 % (42.0-75.0); Hemoglobin 9.3 g/dL (14.0-18.0); Mean Corpuscular HGB CONC 32.9 g/dL (32.0-36.0); Mean Corpuscular Hemoglobin 31.7 pg (27.0-31.0); Mean Corpuscular Volume 96.3 fL (78.0-98.0); Mean Platelet Volume 10.1 fL (7.4-10.4); Platelet Count 158 thou/uL (130-400); RBC Distribution Width 12.4 % (11.5-14.5); Red Blood Cell (RBC) Count 2.94 mill/uL (4.70-6.10); White Blood Cell (WBC) Count 8.7 thou/uL (4.8-10.8)
[2018-03-27 04:59] LABS: Anion Gap 11 mmol/L (10-20); BUN (Urea Nitrogen) 13 mg/dL (8.4-25.7); Calc. Creatinine Clearance 99 mL/min (70-130); Calcium 7.9 mg/dL (7.8-10.44); Carbon Dioxide 22 mmol/L (23-31); Chloride 110 mmol/L (98-107); Estimated GFR-MDRD Greater than 90; Glucose 104 mg/dL (80-115); Potassium 4.5 mmol/L (3.5-5.1); Sodium 138 mmol/L (136-145)
[2018-03-27] MEDS: Ketorolac Tromethamine 30 MG/ML VIAL IVP SCH ×3 (05:32→17:39)
--- NOTE | 2018-03-27 08:09 | PRG ---
DATE OF SERVICE: 03/27/2018 He had coronary bypass grafting surgery yesterday and has done well. He was extubated earlier this m orning. He remains on nitroglycerin drip. He is awake, alert, able to answer questions. PHYSICAL EXAMINATION: VITAL SIGNS: Temperature 99.9, pulse in the 70s, blood pressure 152/47, currently on nitroglycerin d rip at 40 mcg per minute. He has been on nicardipine earlier, but that has been stopped. HEENT: Unremarkable. NECK: No JVD. CHEST: Clear, without wheezing or rhonchi. CARDIAC: S1 and S2 regular. ABDOMEN: Soft. EXTREMITIES: No edema. LABORATORY DATA: White blood cell count 8.7, hematocrit 28.4, platelet count 158. Sodium 138, potas sium 4.5, chloride 110, CO2 22, BUN 13, creatinine 0.6, glucose 104. His chest x-ray was done when he was intubated earlier, shows the appropriate chest tubes. He has go od endotracheal tube in place. He has fairly clear lung jiang bilaterally. ASSESSMENT: 1. Post-coronary bypass grafting surgery - doing well. 2. Status post myocardial infarction. 3. Status post sudden cardiac with subsequent endotracheal intubation and resolution respirato ry failure. PLAN: Continue with postop CABG protocol. He is doing well from a respiratory standpoint. Continue incentive spirometry. Hopefully can be moved out to the floor tomorrow.
--- NOTE | 2018-03-27 08:17 | PDOC.FM ---
- Subjective Subjective: Patient doing well this AM. Sitting at bedside this AM not having any difficulties. Patient denies any chest pain or shortness of breath. - Objective MAR Reviewed: Yes Vital Signs & Weight: Vital Signs (12 hours) Pulse Resp BP Pulse Ox 03/27/18 06:23 78 15 99 03/27/18 06:00 13 03/27/18 04:00 12 136/61 03/27/18 03:11 70 112/56 L 03/27/18 02:00 12 03/27/18 00:00 12 120/60 03/26/18 22:00 12 Weight Admit Weight 62.8 kg Weight 60.7 kg Most Recent Monitor Data Heart Rate from ECG 72 NIBP 136/61 NIBP BP-Mean 86 Respiration from ECG 14 SpO2 100 I&O: 03/26/18 03/27/18 03/28/18 06:59 06:59 06:59 Intake Total 380 1252.1 Output Total 2460 1195 Balance -2080 57.1 Result Diagrams: 03/27/18 03:51 03/27/18 03:51 EKG Reviewed by me: Yes Radiology Reviewed by me: Yes <Rossana Michelle - Last Filed: 03/27/18 08:45> - Objective Vital Signs & Weight: Vital Signs (12 hours) Pulse Resp BP Pulse Ox 03/27/18 10:40 130/49 L 03/27/18 06:23 78 15 99 03/27/18 06:00 13 03/27/18 04:00 12 136/61 03/27/18 03:11 70 112/56 L 03/27/18 02:00 12 03/27/18 00:00 12 120/60 Weight Admit Weight 62.8 kg Weight 60.7 kg Most Recent Monitor Data Heart Rate from ECG 72 NIBP 136/61 NIBP BP-Mean 86 Respiration from ECG 14 SpO2 100 I&O: 03/26/18 03/27/18 03/28/18 06:59 06:59 06:59 Intake Total 380 1252.1 Output Total 2460 1195 Balance -2080 57.1 Result Diagrams: 03/27/18 03:51 03/27/18 03:51 <Dolores Fried - Last Filed: 03/27/18 11:16> Phys Exam - Physical Examination HEENT: moist MMs Neck: supple Respiratory: no wheezing Chest tube in place Cardiovascular: RRR, no significant murmur Gastrointestinal: soft Musculoskeletal: no edema, pulses present Neurological: non-focal Psychiatric: normal affect, A&O x 3 Skin: no rash, cap refill <2 seconds <Rossana Michelle - Last Filed: 03/27/18 08:45> Dx/Plan (1) 3-vessel coronary artery disease Status: Acute (2) Alcohol abuse Code(s): F10.10 - ALCOHOL ABUSE, UNCOMPLICATED Status: Chronic (3) Systolic CHF Code(s): I50.20 - UNSPECIFIED SYSTOLIC (CONGESTIVE) HEART FAILURE Status: Chronic (4) Acute respiratory failure with hypoxia and hypercapnia Code(s): J96.01 - ACUTE RESPIRATORY FAILURE WITH HYPOXIA; J96.02 - ACUTE RESPIRATORY FAILURE WITH HYPERCAPNIA Status: Resolved (5) Cardiac arrest, cause unspecified Code(s): I46.9 - CARDIAC ARREST, CAUSE UNSPECIFIED Status: Resolved (6) Hypokalemia Code(s): E87.6 - HYPOKALEMIA Status: Resolved (7) Transaminitis Code(s): R74.0 - NONSPEC ELEV OF LEVELS OF TRANSAMNS & LACTIC ACID DEHYDRGNSE Status: Resolved - Plan Plan: Severe 3V CAD s/p 3v CABG - Lipid panel wnl, HgA1c wnl - s/p CABG 03/27; extubated around 6 AM - Lifetime treatment with ASA, Statin - Restart JOSHUA-I and BB HFwrEF - Likely 2/2 uncontrolled HTN and alcohol abuse - HgA1c and lipid panel nml - Echo showed LVEF 35-40% - Started on statin, JOSHUA-I, ASA - Add BB if pulse tolerates ROSC s/p cardiac arrest with defib x2 - Was intubated, admitted to CCU with sedation protocol, extubated after <24 hours - Cardiology consulted, appreciate recs - CV surgery consulted; appreciate recs - ECHO showed LVEF of 35-40% - Started on aspirin, statin, and ACEI. Restart per CV surgery recs. Consider low dose BB if pulse will tolerate. - Cardiac cath showed 3 vessel disease. s/p 3v CABG 03/27 Alcohol abuse - Off sedation - ASE scores have been 2-6 in last 48 hours Acute hypoxic resp failure, resolved - 2/2 ROSC s/p cardiac arrest, intubated <24 hours - Requiring 2L post extubation after CABG Elevated cardiac enzymes 2/2 VA - 2/2 ROSC s/p cardiac arrest - s/p 3v CABG Hypokalemia, resolved - Continue to trend, supplement as needed Transaminitis - Continue to monitor, likely 2/2 to alcohol abuse - ASE protocol; score of 2-6 in last 48 hours Hypertension - Started on JOSHUA-I - Will continue to monitor closely - Consider increasing dose of JOSHUA-I for better BP control Code: Full ppx: Lovenox Dispo: Continue ASE protocol. Will continue to follow recommendations of CV surgery. <Rossana Michelle - Last Filed: 03/27/18 08:45> Attending Addendum - Attending Addendum Date/Time: 03/27/18 1113 I personally evaluated the patient and discussed the management with Dr. Michelle I agree with the History, Examination, Assessment and Plan documented above with any addition or exceptions noted below- Patient without complaints. Sitting in chair; eating breakfast. Afebrile VSS. 1) A/P: POD#1 s/p CABG- continue plans as per CV surgery. Wean nitroglycerin as tolerated. 2) S/p cardiac arrest with ROSC- stable. 3) CAD- stable. <Dolores Fried - Last Filed: 03/27/18 11:16>
[2018-03-27] MEDS: Famotidine/PF 20 mg/2ml Vial SLOW IVP SCH (08:39)
[2018-03-27] MEDS ORDERED: Aspirin 325 MG TAB PO SCH (09:00)
[2018-03-27] MEDS ORDERED: diphenhydrAMINE 25 MG CAP PO PRN (09:38)
[2018-03-27] MEDS ORDERED: Artificial Tears 18 DROP/0.9 ML EA EYE PRN (09:38)
[2018-03-27] MEDS ORDERED: Bisacodyl 5 MG TAB PO PRN (09:38)
[2018-03-27] MEDS ORDERED: Mag-Al 1200 mg/1200 mg/30 ML UDCUP PO PRN (09:38)
[2018-03-27] MEDS ORDERED: Guaifenesin DM 100-10/5 ML UDCUP PO PRN (09:38)
[2018-03-27] MEDS ORDERED: Mineral Oil ENEMA PR PRN (09:38)
[2018-03-27] MEDS ORDERED: Bisacodyl 10 MG SUPP PR PRN (09:38)
[2018-03-27] MEDS ORDERED: Nitroglycerin 0.4 MG TAB (25 Tab Bottle) SL PRN (09:38)
--- NOTE | 2018-03-27 09:41 | RAD ---
PORTABLE AP CHEST XRAY: DATE: 03/27/2018. HISTORY: Daily followup evaluation post open heart surgery. COMPARISON: 03/26/2018. FINDINGS: Endotracheal tube and left subclavian central venous catheter remain in place and unchanged in positi on. Mediastinal drains are also again seen. Postsurgical changes related to CABG are gain noted. C ardiac silhouette is magnified by projection. Pulmonary vasculature is at the upper limits of normal . Lungs are clear. There are linear lucencies overlying the right axillary regio which may be relate d to mild subcutaneous emphysema. No other interval change. IMPRESSION: Overall stable chest. POS: TPC
[2018-03-27] MEDS ORDERED: Lisinopril 10 MG TAB PO SCH (10:30)
[2018-03-27 10:45] LABS: Bilirubin Small (Negative); Blood, Urine Trace (Negative); Clarity CLEAR (Clear); Leukocyte Trace (Negative); Nitrite Negative (Negative); Protein, Urine (Dipstick) 30 mg/dL (Neg-Trace); Specific Gravity, Urine 1.034 (1.002-1.036)
[2018-03-27 10:47] LABS: Bacteria/HPF Rare-Few HPF (None Seen); Pathc Cast-AUWi Flag 2.32 (0-2.49)
[2018-03-27 11:01] LABS: Glucose, Urine (Dipstick) Negative (Negative)
[2018-03-27 11:02] LABS: Squamous Epithelial 0-3 HPF (0-3)
[2018-03-27 11:03] LABS: Hyaline Casts/LPF 4-6 HYALINE CAST LPF (0-3 Hyaline)
[2018-03-27] MEDS: Docusate 100 MG CAP PO SCH (21:00)
[2018-03-27] MEDS: Famotidine 20 MG TAB PO SCH (21:01)
[2018-03-27] MEDS: Lisinopril 10 MG TAB PO SCH (21:01)
[2018-03-27] MEDS: Atorvastatin Calcium 40 MG TAB PO SCH (21:02)
[2018-03-28] MEDS: Ketorolac Tromethamine 30 MG/ML VIAL IVP SCH ×2 (00:01→05:37)
[2018-03-28 05:58] LABS: #Eosinphils 0.1 thou/uL (0.0-0.7); #Lymphocytes 1.1 thou/uL (1.20-3.40); #Monocytes 0.9 thou/uL (0.11-0.59); #Neutrophils 6.2 thou/uL (1.40-6.50); %Basophils 0.3 % (0.0-1.0); %Eosinophils 0.9 % (0.0-10.0); %Lymphocytes 13.1 % (21.0-51.0); %Monocytes 11.1 % (0.0-10.0); %Neutrophils 74.6 % (42.0-75.0); Hemoglobin 8.9 g/dL (14.0-18.0); Mean Corpuscular HGB CONC 32.9 g/dL (32.0-36.0); Mean Corpuscular Hemoglobin 32.1 pg (27.0-31.0); Mean Corpuscular Volume 97.5 fL (78.0-98.0); Mean Platelet Volume 9.4 fL (7.4-10.4); Platelet Count 204 thou/uL (130-400); RBC Distribution Width 12.2 % (11.5-14.5); Red Blood Cell (RBC) Count 2.78 mill/uL (4.70-6.10); White Blood Cell (WBC) Count 8.3 thou/uL (4.8-10.8)
--- NOTE | 2018-03-28 06:10 | PDOC.FM ---
- Subjective Subjective: Patient doing well this AM. No significant overnight events. Patient states he is in no pain today. He denies chest pain, shortness of breath, diaphoresis. - Objective MAR Reviewed: Yes Vital Signs & Weight: Vital Signs (12 hours) Temp Pulse Resp BP BP Pulse Ox 03/28/18 04:34 100.2 F H 91 18 152/67 H 94 L 03/28/18 02:42 96 03/27/18 21:01 115/60 03/27/18 19:54 99.0 F 83 18 115/60 93 L Weight Admit Weight 62.8 kg Weight 63.458 kg Most Recent Monitor Data Heart Rate from ECG 80 NIBP 136/61 NIBP BP-Mean 86 Respiration from ECG 21 SpO2 98 I&O: 03/26/18 03/27/18 03/28/18 06:59 06:59 06:59 Intake Total 380 1252.1 2385.5 Output Total 2460 1195 565 Balance -2080 57.1 1820.5 Result Diagrams: 03/28/18 05:36 03/28/18 05:36 EKG Reviewed by me: Yes Radiology Reviewed by me: Yes <Rossana Michelle - Last Filed: 03/28/18 09:14> - Objective Vital Signs & Weight: Weight Admit Weight 62.794 kg Weight 62.188 kg Most Recent Monitor Data Heart Rate from ECG 80 NIBP 136/61 NIBP BP-Mean 86 Respiration from ECG 21 SpO2 98 Result Diagrams: 03/30/18 04:43 03/30/18 04:43 <Dolores Fried - Last Filed: 04/02/18 09:45> Phys Exam - Physical Examination Constitutional: NAD HEENT: moist MMs Neck: supple Respiratory: clear to auscultation bilateral 2 mid chest chest tubes in place; on water seal Cardiovascular: RRR click heard during inspiration Gastrointestinal: soft, non-tender, no distention, positive bowel sounds Musculoskeletal: no edema, pulses present Neurological: non-focal Psychiatric: normal affect, A&O x 3 Skin: no rash, cap refill <2 seconds <Rossana Michelle - Last Filed: 03/28/18 09:14> Dx/Plan (1) 3-vessel coronary artery disease Status: Acute (2) Alcohol abuse Code(s): F10.10 - ALCOHOL ABUSE, UNCOMPLICATED Status: Chronic (3) Systolic CHF Code(s): I50.20 - UNSPECIFIED SYSTOLIC (CONGESTIVE) HEART FAILURE Status: Chronic (4) Acute respiratory failure with hypoxia and hypercapnia Code(s): J96.01 - ACUTE RESPIRATORY FAILURE WITH HYPOXIA; J96.02 - ACUTE RESPIRATORY FAILURE WITH HYPERCAPNIA Status: Resolved (5) Cardiac arrest, cause unspecified Code(s): I46.9 - CARDIAC ARREST, CAUSE UNSPECIFIED Status: Resolved (6) Hypokalemia Code(s): E87.6 - HYPOKALEMIA Status: Resolved (7) Transaminitis Code(s): R74.0 - NONSPEC ELEV OF LEVELS OF TRANSAMNS & LACTIC ACID DEHYDRGNSE Status: Resolved - Plan Plan: Severe 3V CAD s/p 3v CABG - Post op day #2 - Lipid panel wnl, HgA1c wnl - s/p CABG 03/27; extubated around 6 AM yesterday - Lifetime treatment with ASA, Statin - Continue JOSHUA-I and BB - Chest tubes x2 in midchest; output 60 mL last 24 hours; appears to be on water seal currently HFwrEF 35-40% - Likely 2/2 uncontrolled HTN and alcohol abuse - HgA1c and lipid panel nml - Echo showed LVEF 35-40% - Started on statin, JOSHUA-I, ASA - Add BB if pulse tolerates ROSC s/p cardiac arrest with defib x2 - Was intubated, admitted to CCU with sedation protocol, extubated after <24 hours - Cardiology consulted, appreciate recs - CV surgery consulted; appreciate recs - ECHO showed LVEF of 35-40% - Started on aspirin, statin, and ACEI. Consider low dose BB if pulse will tolerate. - Cardiac cath showed 3 vessel disease. s/p 3v CABG 03/27 Alcohol abuse - Off sedation Acute hypoxic resp failure, resolved - 2/2 ROSC s/p cardiac arrest, intubated <24 hours - Satting 100% on RA Elevated cardiac enzymes 2/2 ID - 2/2 ROSC s/p cardiac arrest - s/p 3v CABG Hypokalemia, resolved - Continue to trend, supplement as needed Hypertension - Started on JOSHUA-I - Will continue to monitor closely - Consider increasing dose of JOSHUA-I for better BP control Code: Full ppx: Lovenox Dispo: Stable. Will continue to follow recommendations of CV surgery. <Rossana Michelle - Last Filed: 03/28/18 09:14> Attending Addendum - Attending Addendum Date/Time: 04/02/18942 I personally evaluated the patient and discussed the management with Dr. Michelle on 03/28/18 I agree with the History, Examination, Assessment and Plan documented above with any addition or exceptions noted below- Patient without complaints. Tolerating diet. Denies any pain. Afebrile VSS. A/P: POD#2 s/p CABG- Continue postop care as per CV surgery. 2) HTN- start po meds as per CV surgery. Transfer to floor. <Dolores Fried - Last Filed: 04/02/18 09:45>
[2018-03-28 06:22] LABS: Anion Gap 11 mmol/L (10-20); BUN (Urea Nitrogen) 18 mg/dL (8.4-25.7); Calc. Creatinine Clearance 89 mL/min (70-130); Carbon Dioxide 21 mmol/L (23-31); Chloride 108 mmol/L (98-107); Estimated GFR-MDRD Greater than 90; Glucose 135 mg/dL (80-115); Potassium 4.4 mmol/L (3.5-5.1); Sodium 136 mmol/L (136-145)
[2018-03-28] MEDS: Famotidine 20 MG TAB PO SCH ×2 (08:03→20:04)
[2018-03-28] MEDS: Docusate 100 MG CAP PO SCH ×2 (08:03→20:04)
[2018-03-28] MEDS: Aspirin 325 mg Enteric Coated Tablet PO SCH (08:03)
[2018-03-28] MEDS: Lisinopril 10 MG TAB PO SCH ×2 (08:03→20:04)
--- NOTE | 2018-03-28 08:15 | EKG ---
Test Reason : STAT Blood Pressure : / mmHG Vent. Rate : 054 BPM Atrial Rate : 054 BPM P-R Int : 126 ms QRS Dur : 084 ms QT Int : 474 ms P-R-T Axes : 061 053 -25 degrees QTc Int : 449 ms Sinus bradycardia with Premature atrial complexes in a pattern of bigeminy Left ventricular hypertrophy with repolarization abnormality Abnormal ECG When compared with ECG of 20-MAR-2018 22:32, Premature atrial complexes are now Present ST no longer depressed in Lateral leads T wave inversion less evident in Lateral leads QT has shortened Confirmed by DR. Yojana SAHA ([id number]) on 03/28/2018 8:15:36 AM Referred By: JASON Confirmed By:DR. Yojana SAHA
--- NOTE | 2018-03-28 08:31 | RAD ---
CHEST ONE VIEW: History: Heart surgery. Follow up. Comparison: 03-27-18 FINDINGS: Cardiac silhouette magnified and enlarged. Pulmonary vasculature now upper limits of normal. Opacity at the left base has worsened slightly. Mediastinum midline. Post-operative changes. Endotracheal cat heter no longer visible. Other lines and tubes appear unchanged in position. IMPRESSION: 1. Interval extubation. 2. Interval increase in left basilar infiltrate and pulmonary vascular congestion. POS: [facility]
[2018-03-28] MEDS: cefTRIAXone\\ROCEPHIN 1 GM in Sodium Chloride 0.9% 100 ML IVPB SCH (11:17)
[2018-03-28 13:29] VITALS: BMI 23.3
[2018-03-28] MEDS: Atorvastatin Calcium 40 MG TAB PO SCH (20:04)
[2018-03-29 05:24] LABS: #Basophils 0.1 thou/uL (0.0-0.2); #Eosinphils 0.1 thou/uL (0.0-0.7); #Lymphocytes 1.2 thou/uL (1.20-3.40); #Monocytes 0.7 thou/uL (0.11-0.59); #Neutrophils 7.3 thou/uL (1.40-6.50); %Basophils 0.8 % (0.0-1.0); %Eosinophils 1.3 % (0.0-10.0); %Lymphocytes 12.9 % (21.0-51.0); %Monocytes 7.9 % (0.0-10.0); %Neutrophils 77.2 % (42.0-75.0); Hemoglobin 8.4 g/dL (14.0-18.0); Mean Corpuscular Hemoglobin 31.2 pg (27.0-31.0); Mean Corpuscular Volume 97.2 fL (78.0-98.0); Mean Platelet Volume 8.6 fL (7.4-10.4); Platelet Count 267 thou/uL (130-400); RBC Distribution Width 12.2 % (11.5-14.5); Red Blood Cell (RBC) Count 2.68 mill/uL (4.70-6.10); White Blood Cell (WBC) Count 9.4 thou/uL (4.8-10.8)
[2018-03-29 05:47] LABS: Anion Gap 10 mmol/L (10-20); BUN (Urea Nitrogen) 12 mg/dL (8.4-25.7); Calc. Creatinine Clearance 88 mL/min (70-130); Calcium 7.9 mg/dL (7.8-10.44); Carbon Dioxide 22 mmol/L (23-31); Chloride 107 mmol/L (98-107); Estimated GFR-MDRD Greater than 90; Glucose 160 mg/dL (80-115); Sodium 135 mmol/L (136-145)
--- NOTE | 2018-03-29 08:25 | PDOC.FM ---
- Subjective Subjective: Patient found resting comfortably in bed this morning. No specific complaints. No acute events over night - Objective Vital Signs & Weight: Vital Signs (12 hours) Temp Pulse Resp BP Pulse Ox 03/29/18 07:23 99.1 F 85 20 154/75 H 95 03/29/18 04:00 99.1 F 88 20 157/81 H 92 L 03/28/18 23:39 99 F 92 22 H 143/73 H 93 L Weight Admit Weight 62.794 kg Weight 62.188 kg Most Recent Monitor Data Heart Rate from ECG 80 NIBP 136/61 NIBP BP-Mean 86 Respiration from ECG 21 SpO2 98 I&O: 03/28/18 03/29/18 03/30/18 06:59 06:59 06:59 Intake Total 2385.5 820 Output Total 565 240 Balance 1820.5 580 Result Diagrams: 03/29/18 04:54 03/29/18 04:54 <Bharath Nava - Last Filed: 03/29/18 08:18> - Objective Vital Signs & Weight: Vital Signs (12 hours) Temp Pulse Pulse Pulse Resp BP BP 03/29/18 08:50 93 80 186/85 H 03/29/18 08:32 150/61 H 03/29/18 07:23 99.1 F 85 20 03/29/18 04:00 99.1 F 88 20 03/28/18 23:39 99 F 92 22 H BP BP Pulse Ox Pulse Ox Pulse Ox 03/29/18 08:50 165/77 H 91 L 95 03/29/18 08:32 03/29/18 07:23 154/75 H 95 03/29/18 04:00 157/81 H 92 L 03/28/18 23:39 143/73 H 93 L Weight Admit Weight 62.794 kg Weight 62.188 kg Most Recent Monitor Data Heart Rate from ECG 80 NIBP 136/61 NIBP BP-Mean 86 Respiration from ECG 21 SpO2 98 I&O: 03/28/18 03/29/18 03/30/18 06:59 06:59 06:59 Intake Total 2385.5 820 Output Total 565 240 Balance 1820.5 580 Result Diagrams: 03/29/18 04:54 03/29/18 04:54 <Macario Nascimento - Last Filed: 03/29/18 11:28> Phys Exam - Physical Examination Constitutional: NAD HEENT: moist MMs Neck: no nodes Respiratory: clear to auscultation bilateral Cardiovascular: RRR Gastrointestinal: soft, non-tender, no distention Musculoskeletal: no edema Incision clean and dry Neurological: moves all 4 limbs Psychiatric: normal affect, A&O x 3 Skin: no rash <Bharath Nava - Last Filed: 03/29/18 08:18> Dx/Plan (1) 3-vessel coronary artery disease Status: Acute (2) Alcohol abuse Code(s): F10.10 - ALCOHOL ABUSE, UNCOMPLICATED Status: Chronic (3) Systolic CHF Code(s): I50.20 - UNSPECIFIED SYSTOLIC (CONGESTIVE) HEART FAILURE Status: Chronic (4) Acute respiratory failure with hypoxia and hypercapnia Code(s): J96.01 - ACUTE RESPIRATORY FAILURE WITH HYPOXIA; J96.02 - ACUTE RESPIRATORY FAILURE WITH HYPERCAPNIA Status: Resolved (5) Cardiac arrest, cause unspecified Code(s): I46.9 - CARDIAC ARREST, CAUSE UNSPECIFIED Status: Resolved (6) Hypokalemia Code(s): E87.6 - HYPOKALEMIA Status: Resolved (7) Transaminitis Code(s): R74.0 - NONSPEC ELEV OF LEVELS OF TRANSAMNS & LACTIC ACID DEHYDRGNSE Status: Resolved - Plan Plan: 1. Severe 3V CAD s/p 3v CABG on 03/27 - Post op day #3 - Chest tube dc'd yesterday - Lifetime treatment with ASA, Statin - Continue JOSHUA-I and BB 2. HFwrEF 35-40% - Likely 2/2 uncontrolled HTN and alcohol abuse - Started on statin, JOSHUA-I, ASA - Consider starting beta bartolo in outpatient setting 3. ROSC s/p cardiac arrest with defib x2 - Was intubated, admitted to CCU with sedation protocol, extubated after <24 hours 4. Alcohol abuse - [employer] on cessation. No concerns for further withdrawal at this time 5. Acute hypoxic resp failure, resolved 6. Elevated cardiac enzymes 2/2 NM, now s/p CABG 7. Hypokalemia, resolved - Continue to trend, supplement as needed 8. Hypertension - Started on JOSHUA-I, BPs are now typically in the 150s systolic. This may be related to pain, recommend further titration of meds in outpatient setting Code: Full ppx: Sunitanox Dispo: Stable. Will continue to follow recommendations of CV surgery. <Bharath Nava - Last Filed: 03/29/18 08:18> Attending Addendum - Attending Addendum Date/Time: 03/29/18 1127 I personally evaluated the patient and discussed the management with Dr. Nava. I agree with the History, Examination, Assessment and Plan documented above with any addition or exceptions noted below. Patient doing well on POD3 from CABG. Continue post CABG care and await recs from CVSurg. Likely nearing stability for discharge but that depends on CV course. <Macario Nascimento - Last Filed: 03/29/18 11:28>
[2018-03-29] MEDS: Famotidine 20 MG TAB PO SCH ×2 (08:31→19:56)
[2018-03-29] MEDS: Lisinopril 10 MG TAB PO SCH ×2 (08:32→19:55)
[2018-03-29] MEDS: Docusate 100 MG CAP PO SCH ×2 (08:32→19:56)
[2018-03-29] MEDS: Aspirin 325 mg Enteric Coated Tablet PO SCH (08:32)
--- NOTE | 2018-03-29 09:57 | RAD ---
UPRIGHT PORTABLE CHEST ONE VIEW: History: 63-year-old male post op open heart. Follow up. Comparison: 03-28-18 FINDINGS: Post underlying sternotomy. Minimal cardiomegaly with bilateral vascular congestion and interstitial edema and pleural effusions. Left subclavian catheter in place. IMPRESSION: Progressive vascular congestion and interstitial edema and pleural effusions. No pneumothorax. Contin ued short term follow up. POS: [facility]
[2018-03-29] MEDS: cefTRIAXone\\ROCEPHIN 1 GM in Sodium Chloride 0.9% 100 ML IVPB SCH (10:34)
[2018-03-29] MEDS ORDERED: Acetaminophen 500 MG TAB PO PRN (13:41)
[2018-03-29] MEDS: hydrALAZINE 20 MG/ML VIAL SLOW IVP PRN (13:58)
--- NOTE | 2018-03-29 13:58 | PDOC.CTH ---
Cardiology Progress Note - Subjective No new issues. He has had BM's. He has been walking around without issues. - Objective Vital Signs Temp Pulse Pulse Pulse Resp BP BP 03/29/18 12:00 99.7 F H 81 18 03/29/18 08:50 93 80 186/85 H 03/29/18 08:32 150/61 H 03/29/18 07:23 99.1 F 85 20 03/29/18 04:00 99.1 F 88 20 BP BP Pulse Ox Pulse Ox Pulse Ox 03/29/18 12:00 169/79 H 93 L 03/29/18 08:50 165/77 H 91 L 95 03/29/18 08:32 03/29/18 07:23 154/75 H 95 03/29/18 04:00 157/81 H 92 L Admit Weight 138 lb 7 oz Weight 137 lb 1.6 oz 03/28/18 03/29/18 03/30/18 06:59 06:59 06:59 Intake Total 2385.5 820 Output Total 565 240 Balance 1820.5 580 - Physical Examination General/Neuro: alert & oriented x3, NAD Neck: no JVD present Lungs: CTA, unlabored respirations Heart: RRR Abdomen: NT/ND Extremities: + edema B (1+) - Telemetry Telemetry Rhythm: NSR - Labs Result Diagrams: 03/29/18 04:54 03/29/18 04:54 Troponin/CKMB CK-MB (CK-2) 41.9 ng/mL (0-6.6) H* 03/21/18 12:07 Troponin I 2.518 ng/mL (< 0.028) H* 03/21/18 12:07 - Assessment/Plan 1. Multivessel CAD. 2. S/P CABG 3. S/P VT arrest 4. Alcohol abuse/ 5. EF at 35-40%. 6. HTN PLAN: - Will add Coreg. - [id number] Aspirin Stain, BB. - Abx for UTI. - Increase PT as tolerated. - Alcohol cessation counselling.
[2018-03-29] MEDS: Carvedilol 3.125 MG TAB PO SCH (17:39)
[2018-03-29] MEDS: Atorvastatin Calcium 40 MG TAB PO SCH (19:56)
[2018-03-30 05:02] LABS: #Eosinphils 0.2 thou/uL (0.0-0.7); #Lymphocytes 1.2 thou/uL (1.20-3.40); #Monocytes 0.9 thou/uL (0.11-0.59); #Neutrophils 7.2 thou/uL (1.40-6.50); %Basophils 0.2 % (0.0-1.0); %Eosinophils 2.2 % (0.0-10.0); %Lymphocytes 12.6 % (21.0-51.0); %Monocytes 9.1 % (0.0-10.0); %Neutrophils 75.9 % (42.0-75.0); Hemoglobin 9.4 g/dL (14.0-18.0); Mean Corpuscular HGB CONC 32.5 g/dL (32.0-36.0); Mean Corpuscular Hemoglobin 31.5 pg (27.0-31.0); Mean Platelet Volume 8.5 fL (7.4-10.4); Platelet Count 325 thou/uL (130-400); RBC Distribution Width 12.2 % (11.5-14.5); Red Blood Cell (RBC) Count 2.99 mill/uL (4.70-6.10); White Blood Cell (WBC) Count 9.5 thou/uL (4.8-10.8)
[2018-03-30 05:22] LABS: Anion Gap 11 mmol/L (10-20); BUN (Urea Nitrogen) 12 mg/dL (8.4-25.7); Calc. Creatinine Clearance 98 mL/min (70-130); Calcium 8.1 mg/dL (7.8-10.44); Carbon Dioxide 21 mmol/L (23-31); Chloride 105 mmol/L (98-107); Estimated GFR-MDRD Greater than 90; Glucose 122 mg/dL (80-115); Potassium 4.1 mmol/L (3.5-5.1); Sodium 133 mmol/L (136-145)
--- NOTE | 2018-03-30 08:29 | PDOC.FM ---
- Subjective Subjective: Patient seen resting comfortably this morning. No specific complaints. Pain well controlled. No issues over night - Objective Vital Signs & Weight: Vital Signs (12 hours) Temp Pulse Resp BP Pulse Ox 03/30/18 04:00 99 F 77 18 156/74 H 93 L Weight Admit Weight 62.794 kg Weight 62.188 kg Most Recent Monitor Data Heart Rate from ECG 80 NIBP 136/61 NIBP BP-Mean 86 Respiration from ECG 21 SpO2 98 I&O: 03/29/18 03/30/18 03/31/18 06:59 06:59 06:59 Intake Total 820 Output Total 240 Balance 580 Result Diagrams: 03/30/18 04:43 03/30/18 04:43 <Bharath Nava - Last Filed: 03/30/18 08:26> - Objective Vital Signs & Weight: Vital Signs (12 hours) Temp Pulse Pulse Pulse Resp BP BP 03/30/18 10:21 162/74 H 03/30/18 09:00 97.3 F L 86 16 03/30/18 08:26 91 72 184/95 H 03/30/18 04:00 99 F 77 18 BP BP Pulse Ox Pulse Ox Pulse Ox 03/30/18 10:21 03/30/18 09:00 162/74 H 95 03/30/18 08:26 147/70 H 94 L 93 L 03/30/18 04:00 156/74 H 93 L Weight Admit Weight 62.794 kg Weight 62.188 kg Most Recent Monitor Data Heart Rate from ECG 80 NIBP 136/61 NIBP BP-Mean 86 Respiration from ECG 21 SpO2 98 I&O: 03/29/18 03/30/18 03/31/18 06:59 06:59 06:59 Intake Total 820 Output Total 240 Balance 580 Result Diagrams: 03/30/18 04:43 03/30/18 04:43 <Macario Nascimento - Last Filed: 03/30/18 10:54> Phys Exam - Physical Examination Constitutional: NAD HEENT: sclera anicteric Neck: no JVD Respiratory: clear to auscultation bilateral Cardiovascular: RRR, no significant murmur Gastrointestinal: non-tender, no distention Musculoskeletal: no edema Incision clean and dry Psychiatric: A&O x 3 Skin: no rash <Bharath Nava - Last Filed: 03/30/18 08:26> Dx/Plan (1) 3-vessel coronary artery disease Status: Acute (2) Alcohol abuse Code(s): F10.10 - ALCOHOL ABUSE, UNCOMPLICATED Status: Chronic (3) Systolic CHF Code(s): I50.20 - UNSPECIFIED SYSTOLIC (CONGESTIVE) HEART FAILURE Status: Chronic (4) Acute respiratory failure with hypoxia and hypercapnia Code(s): J96.01 - ACUTE RESPIRATORY FAILURE WITH HYPOXIA; J96.02 - ACUTE RESPIRATORY FAILURE WITH HYPERCAPNIA Status: Resolved (5) Cardiac arrest, cause unspecified Code(s): I46.9 - CARDIAC ARREST, CAUSE UNSPECIFIED Status: Resolved (6) Hypokalemia Code(s): E87.6 - HYPOKALEMIA Status: Resolved (7) Transaminitis Code(s): R74.0 - NONSPEC ELEV OF LEVELS OF TRANSAMNS & LACTIC ACID DEHYDRGNSE Status: Resolved (8) UTI (urinary tract infection) Status: Acute - Plan Plan: 1. Severe 3V CAD s/p 3v CABG on 03/27 - Post op day #4 - Chest tube dc'd, pt walking with PT. - Lifetime treatment with ASA, Statin - Continue JOSHUA-I and BB 2. HFwrEF 35-40% - Likely 2/2 uncontrolled HTN and alcohol abuse - Started on statin, JOSHUA-I, ASA - Consider starting beta bartolo in outpatient setting 3. ROSC s/p cardiac arrest with defib x2 - Was intubated, admitted to CCU with sedation protocol, extubated after <24 hours 4. Alcohol abuse - [employer] on cessation. No concerns for further withdrawal at this time 5. Acute hypoxic resp failure, resolved 6. Elevated cardiac enzymes 2/2 MA, now s/p CABG 7. Hypokalemia, resolved - Continue to trend, supplement as needed 8. Hypertension - Started on JOSHUA-I, BPs are now typically in the 150s systolic. This may be related to pain, recommend further titration of meds in outpatient setting 9. UTI - less than 100k CFU of citrobacter. Pt on rocephin. Today should be last day to treat Code: Full ppx: Lovenox Dispo: Stable. Will continue to follow recommendations of CV surgery, would expect dc soon. <Bharath Nava - Last Filed: 03/30/18 08:26> Attending Addendum - Attending Addendum Date/Time: 03/30/18 1054 I personally evaluated the patient and discussed the management with Dr. Nava. I agree with the History, Examination, Assessment and Plan documented above with any addition or exceptions noted below. Patient stable, worked with PT without issue this morning. Await further recs from CV surg and Cardiology but anticipate hopeful discharge soon. <Macario Nascimento R - Last Filed: 03/30/18 10:54>
[2018-03-30] MEDS: Aspirin 325 mg Enteric Coated Tablet PO SCH (10:20)
[2018-03-30] MEDS: Docusate 100 MG CAP PO SCH (10:21)
[2018-03-30] MEDS: Carvedilol 3.125 MG TAB PO SCH ×2 (10:21→17:48)
[2018-03-30] MEDS: Famotidine 20 MG TAB PO SCH (10:21)
[2018-03-30] MEDS: Lisinopril 10 MG TAB PO SCH (10:21)
[2018-03-30] MEDS: cefTRIAXone\\ROCEPHIN 1 GM in Sodium Chloride 0.9% 100 ML IVPB SCH (10:22)
[2018-03-30 13:41] VITALS: TEMP 97.2
--- NOTE | 2018-03-30 13:59 | PDOC.CTH ---
Cardiology Progress Note - Subjective Doing well. No new issues, walking without issues. having BM's. - Objective Vital Signs Temp Pulse Pulse Pulse Resp BP BP 03/30/18 12:00 97.2 F L 79 16 03/30/18 11:37 85 79 135/73 03/30/18 10:21 162/74 H 03/30/18 09:00 97.3 F L 86 16 03/30/18 08:26 91 72 184/95 H 03/30/18 04:00 99 F 77 18 BP BP Pulse Ox Pulse Ox Pulse Ox 03/30/18 12:00 151/71 H 94 L 03/30/18 11:37 144/71 H 91 L 93 L 03/30/18 10:21 03/30/18 09:00 162/74 H 95 03/30/18 08:26 147/70 H 94 L 93 L 03/30/18 04:00 156/74 H 93 L Admit Weight 138 lb 7 oz Weight 137 lb 1.6 oz 03/29/18 03/30/18 03/31/18 06:59 06:59 06:59 Intake Total 820 Output Total 240 Balance 580 - Physical Examination General/Neuro: alert & oriented x3, NAD Neck: no JVD present Lungs: CTA, unlabored respirations Heart: RRR Abdomen: NT/ND Extremities: + edema B (1+) - Telemetry Telemetry Rhythm: NSR - Labs Result Diagrams: 03/30/18 04:43 03/30/18 04:43 Troponin/CKMB CK-MB (CK-2) 41.9 ng/mL (0-6.6) H* 03/21/18 12:07 Troponin I 2.518 ng/mL (< 0.028) H* 03/21/18 12:07 - Assessment/Plan 1. Multivessel CAD. 2. S/P CABG 3. S/P VT arrest 4. Alcohol abuse/ 5. EF at 35-40%. 6. HTN PLAN: - Continue Aspirin Stain, BB, ACEI. - Abx for UTI. - Increase PT as tolerated. - Alcohol cessation counselling. - Home once lifevest set up complete.
[2018-03-30 18:31] VITALS: BP 123/62
--- NOTE | 2018-03-30 19:21 | DIS-2 ---
DATE OF ADMISSION: 03/20/2018 DATE OF DISCHARGE: 03/30/2013. RESIDENT: Bharath Nava DO ADMITTING ATTENDING: Dolores Fried MD DISCHARGE ATTENDING: Macario Nascimento MD CONSULTATIONS: 1. Pulmonology Critical Care, Grayson Almaguer MD. 2. Cardiology, Chris Snider MD. 3. Cardiovascular Surgery, Pablo Levine MD. PROCEDURES PERFORMED: Cervical spine CT on 03/20/2018, with the finding of no evidence of acute cervical spine fractures or bony lesions. Chest x-ray on , with the finding of a distal tip of left subclavian central line kinked in distal aspect, endotracheal tube in good position, and areas of airspace opacity in the upper lobes that are concerning for possible pneumonia. Brain CT on 03/20/2018 with the finding of unremarkable for CT brain. Cardiac catheterization on 03/20/2018 with the findings include significant 3- vessel disease. Echocardiogram on 03/22/2018, finding of ejection fraction of 35-40%, moderate mitral regurgitation, moderate aortic regurgitation, mild tricuspid regurgitation, and moderately depressed overall left ventricular function. Chest x-ray on 03/26/2018 with the finding of no acute cardiopulmonary process and findings compatible with recent open heart surgery and 3-vessel coronary artery bypass graft on 03/26/2018. Chest x-ray on 2017, finding with an endotracheal tube and left subclavian central vein in place. Linear lucencies overlying the right axillary region related to previous emphysema and postsurgical changes. Chest x-ray 03/28/2018, finding of interval extubation and interval increase in basilar infiltrate and pulmonary vascular congestion. A chest x-ray on 03/29/2018 with finding of progressive vascular congestion and interstitial edema. ADMITTING DIAGNOSES: Cardiac arrest with return of spontaneous circulation, acute respiratory failure with hypoxia and hypercapnia, hyperkalemia, and transaminitis, systolic congestive heart failure, alcohol abuse, 3-vessel coronary artery disease, urinary tract infection. DISCHARGE MEDICATIONS: [place] 5/325 one to 2 tablets p.o. q.4, nitroglycerin 0.4 mg sublingual q.5 minutes p.r.n., aspirin 325 mg p.o. daily, Lipitor 80 mg at bedtime, Coreg 3.125 mg p.o. b.i.d. with meals, and lisinopril 10 mg p.o. b.i.d. The patient was also sent with a LifeVest. HOSPITAL COURSE: This is a 63-year-old male, who was found down at home and transported to the hospital. During transport CPR was required and ROSC was obtained. The patient was taken to minil[facility] operator where they noted severe 3-vessel disease, with recommendation to seek consultation for possible CABG. For the first 3 days of hospitalization, the patient was intubated. Following extubation , he went through significant alcohol withdrawals which required medical intervention. There were no signs of DT. Initially, the need for CABG was discussed and this was declined by the patient. However, after the patient after recovering from alcohol withdrawal, his mental status improved, he became amenable to the procedure. The patient successfully underwent a 3-vessel CABG and recovered quickly. He was extubated the day following surgery. Chest tubes were in for approximately 3 days. His progress with physical therapy was good and by the time he was discharged, he was walking the halls with minimal help and pain was well controlled and good bowel movements. It was also recommended the patient go home with a LifeVest. This was placed on the day of discharge. DISCHARGE INSTRUCTIONS: 1. Location: Home. 2. Followup: With cardiac rehab in [place] on 04/05/2018 with [facility] [place] in a week, with Dr. Chris Snider in 3-4 weeks, and Dr. Levine in 1 week. 3. Diet: Heart healthy. 4. Activity as tolerated MTDD
--- NOTE | 2018-04-01 21:38 | EKG ---
Test Reason : Blood Pressure : / mmHG Vent. Rate : 059 BPM Atrial Rate : 059 BPM P-R Int : 124 ms QRS Dur : 096 ms QT Int : 478 ms P-R-T Axes : 073 068 145 degrees QTc Int : 473 ms Sinus bradycardia with Premature atrial complexes Left ventricular hypertrophy with repolarization abnormality Nonspecific ST abnormality Abnormal ECG When compared with ECG of 24-MAR-2018 09:32, (Unconfirmed) No significant change was found Confirmed by SHARON GOMEZ (2) on 04/01/2018 9:37:59 PM Referred By: BETHANY Confirmed By:SHARON GOMEZ
[2018-04-03 14:12] LABS: Analyzer IN Cardio OR; Base Excess (BEa) -1.1 mEq/L (-2.0 to +3.0); CO2 Tension 49.7 mmHg (35.0-45.0); Carboxyhemoglobin (COHb) 1.1 gm% (0.0-3.0); Hemoglobin (Hb) 7.4 g/dL (14.0-18.0); O2 Tension (PaO2) 408.6 mmHg (> 80.0); Potassium - ABG Lab 4.64 mmol/L (3.70-5.30); pH, Arterial 7.32 (7.35-7.45)
[2018-04-03 14:12] LABS: Actual Bicarbonate (HCO3a) 20.6 mEq/L (22-28); Analyzer IN Cardio OR; Base Excess (BEa) -4.6 mEq/L (-2.0 to +3.0); CO2 Tension 38.7 mmHg (35.0-45.0); Calcium, Ionized 1.09 mmol/L (1.12-1.30); Carboxyhemoglobin (COHb) 0.3 gm% (0.0-3.0); Hemoglobin (Hb) 11.1 g/dL (14.0-18.0); Potassium - ABG Lab 3.89 mmol/L (3.70-5.30); pH, Arterial 7.35 (7.35-7.45)
[2018-04-03 14:12] LABS: Analyzer IN Cardio OR; Base Excess (BEa) -3.5 mEq/L (-2.0 to +3.0); CO2 Tension 31.4 mmHg (35.0-45.0); Calcium, Ionized 1.12 mmol/L (1.12-1.30); Carboxyhemoglobin (COHb) 0.3 gm% (0.0-3.0); Hemoglobin (Hb) 12.3 g/dL (14.0-18.0); O2 Tension (PaO2) 324.8 mmHg (> 80.0); Potassium - ABG Lab 4.03 mmol/L (3.70-5.30); pH, Arterial 7.42 (7.35-7.45)
[2018-04-03 14:13] LABS: Actual Bicarbonate (HCO3a) 23.8 mEq/L (22-28); Analyzer IN Cardio OR; Base Excess (BEa) -0.9 mEq/L (-2.0 to +3.0); CO2 Tension 39.5 mmHg (35.0-45.0); Calcium, Ionized 1.19 mmol/L (1.12-1.30); Carboxyhemoglobin (COHb) 0.3 gm% (0.0-3.0); Hemoglobin (Hb) 9.7 g/dL (14.0-18.0); O2 Tension (PaO2) 360.5 mmHg (> 80.0); Potassium - ABG Lab 4.42 mmol/L (3.70-5.30)
[2018-04-03 14:13] LABS: Actual Bicarbonate (HCO3a) 23.2 mEq/L (22-28); Analyzer IN Cardio OR; Base Excess (BEa) -2.7 mEq/L (-2.0 to +3.0); CO2 Tension 45.5 mmHg (35.0-45.0); Calcium, Ionized 1.02 mmol/L (1.12-1.30); Carboxyhemoglobin (COHb) 0.1 gm% (0.0-3.0); O2 Tension (PaO2) 387.3 mmHg (> 80.0); Potassium - ABG Lab 4.97 mmol/L (3.70-5.30); pH, Arterial 7.33 (7.35-7.45)
[2018-04-03 14:13] LABS: Actual Bicarbonate (HCO3v) 25 mEq/L (22-28); Analyzer IN Cardio OR; Base Excess -2.3 mEq/L (-2.0 to +3.0); Calcium, Ionized 0.97 mmol/L (1.16-1.32); Chloride (ABG LAB) 104 mmol/L (98-106); Hemoglobin (Hb) 7.5 g/dL (12.6-17.4); Potassium - ABG Lab 4.66 mmol/L (3.70-5.30); Sodium 132.6 mmol/L (133-146); pH (venous) 7.26 (7.32-7.43)
[2018-04-03 14:31] LABS: Puncture Site ALINE
[2018-04-03 14:32] LABS: Puncture Site ALINE
[2018-04-03 14:33] LABS: Puncture Site ALINE
[2018-04-03 14:33] LABS: Puncture Site ALINE
[2018-04-03 14:34] LABS: Puncture Site ALINE
== END 2018-03-30 18:20 | disposition home or self-care (01) | DRG 233 ==
LOC: EDBD 22:29 → ERS 22:29 → CCU 23:30 → 2NO 03-27 14:12
PROVIDERS: ADMIT Family Medicine; ATTEND Family Medicine
PROC: 5A1935Z Respiratory Ventilation, Less than 24 Consecutive Hours (ICD-10-PCS; 2018-03-21)
PROC: 4A023N7 Measurement of Cardiac Sampling and Pressure, Left Heart, Percutaneous Approach (ICD-10-PCS; 2018-03-22)
PROC: B2111ZZ Fluoroscopy of Multiple Coronary Arteries using Low Osmolar Contrast (ICD-10-PCS; 2018-03-22)
PROC: B2151ZZ Fluoroscopy of Left Heart using Low Osmolar Contrast (ICD-10-PCS; 2018-03-22)
PROC: 02100Z9 Bypass Coronary Artery, One Artery from Left Internal Mammary, Open Approach (ICD-10-PCS; principal; 2018-03-26)
PROC: 021109W Bypass Coronary Artery, Two Arteries from Aorta with Autologous Venous Tissue, Open Approach (ICD-10-PCS; 2018-03-26)
PROC: 06BQ4ZZ Excision of Left Saphenous Vein, Percutaneous Endoscopic Approach (ICD-10-PCS; 2018-03-26)
PROC: 5A1221Z Performance of Cardiac Output, Continuous (ICD-10-PCS; 2018-03-26)
PROC: 02L70ZK Occlusion of Left Atrial Appendage, Open Approach (ICD-10-PCS; 2018-03-26)
DX: I25.10 Atherosclerotic heart disease of native coronary artery without angina pectoris (principal); I49.01 Ventricular fibrillation; J96.01 Acute respiratory failure with hypoxia; J96.02 Acute respiratory failure with hypercapnia; I46.2 Cardiac arrest due to underlying cardiac condition; E87.2 Acidosis; I50.22 Chronic systolic (congestive) heart failure; F10.239 Alcohol dependence with withdrawal, unspecified; N39.0 Urinary tract infection, site not specified; I11.0 Hypertensive heart disease with heart failure; E87.6 Hypokalemia; R74.0 Nonspecific elevation of levels of transaminase and lactic acid dehydrogenase [LDH]; F17.210 Nicotine dependence, cigarettes, uncomplicated
CPT/HCPCS: 36415; 36416; 36556; 70450; 71045; 72125; 80048; 80053; 80061; 80306; 80307; 81001; 81003; 81015; 82310; 82330; 82553; 82803; 82805; 83036; 83605; 83690; 83735; 83880; 84100; 84484; 85025; 85610; 85730; 86140; 86850; 86900; 86901; 87040; 87077; 87086; 87186; 93005; 93010; 93306; 93458; 93798; 94002; 94003; 94150; 96365; 96366; 96368; 96375; 99152; C1769; J0131; J0282; J0360; J0696; J1644; J1650; J1815; J1885; J2001; J2060; J2150; J2250; J2440; J2704; J2720; J3010; J3370; J3411; J3475; J3480; J7042; J7050; P9045; S0017; S0028